=== PATIENT | female | born 1955 | race Hispanic/Latino ===

== ENCOUNTER 2017-04-10 09:15 | Emergency (ER) | payer OTHER ==
[~2017-04-10] VITALS: Ht 165.1 cm; Wt 117.9 kg
[~2017-04-10 09:15] MED LIST: AMLODIPINE BESYL5 MG PO; GLIPIZIDE XL5 MG PO; HYDROCHLOROTH12.5 MG PO; LANTUS100 UNITS/ SUB-Q; MAGNESIUM OXID400 MG PO; MOTRIN IB200 MG PO; NORCO 5-325 TA1 EACH PO; NOVOLOG100 UNITS/ SUB-Q; OXYCODONE HCL5 MG PO; PANTOPRAZOLE SO40 MG PO; PROVERA5 MG PO; REGLAN10 MG PO; SUCRALFATE1 GM PO
[2017-04-10] MEDS ORDERED: LIPITOR10 MG PO (10:05)
[2017-04-10] MEDS ORDERED: ASPIRIN EC81 MG PO (10:05)
[2017-04-10] MEDS ORDERED: GLUCOTROL XL2.5 MG PO (10:06)
[2017-04-10] MEDS ORDERED: PROTONIX40 MG PO (13:28)
[2017-04-10] MEDS ORDERED: ONDANSETRON ODT8 MG PO (13:28)
== END 2017-04-10 13:40 | disposition home or self-care (01) ==
LOC: ED 09:15
DX: R10.13 Epigastric pain (principal); R11.2 Nausea with vomiting, unspecified; I10 Essential (primary) hypertension; E11.9 Type 2 diabetes mellitus without complications; Z90.710 Acquired absence of both cervix and uterus; Z79.84 Long term (current) use of oral hypoglycemic drugs; Z79.899 Other long term (current) drug therapy; Z79.82 Long term (current) use of aspirin; Z88.8 Allergy status to other drugs, medicaments and biological substances
CPT/HCPCS: 76705; 80053; 81001; 82150; 83690; 85025; 96374; 96375; 96376; 99284; J1170; J2405

== ENCOUNTER 2018-10-05 14:39 | Emergency (ER) | payer OTHER ==
[~2018-10-05] VITALS: Ht 162.6 cm; Wt 107.5 kg
--- OUTSIDE RECORDS SUMMARY | ~2018-10-05 | XMS | Encounter Summary ---
Demographics + + + | Address | [address] | | | [place] [address] | + + + | Home Phone | | + + + | Preferred Language | Unknown | + + + | Marital Status | Single | + + + | Catholic Affiliation | NRP | + + + | Race | Unknown | + + + | Ethnic Group | Not or | + + + Author + + + | Author | [facility] | + + + | Organization | [facility] | + + + | Address | Unknown | + + + | Phone | Unavailable | + + + Support + + +---------+ + | Name | Relationship | Address | Phone | + + +---------+ + | Susie Bermeo | ECON | Unknown | | + + +---------+ + | Bermeo,Harini | ECON | Unknown | | + + +---------+ + Care Team Providers + +------+ + | Care Seismograph Helper Name | Role | Phone | + +------+ + | Juan Manuel Yan MD | PCP | | + +------+ + Reason for Referral Diagnostic Testing (Routine) +--------+--------+ + + + + | Status | Reason | Specialty | Diagnoses / | Referred By | Referred To | | | | | Procedures | Contact | Contact | +--------+--------+ + + + + | Closed | | Radiology | Diagnoses | Txc Trans | [facility] | | | | | Other | Coord Liver | [address] | | | | | cirrhosis of | [address] | | | | | liver (HCC) | [address] | [address] | | | | | Liver mass | [address] | Mailcode: | | | | | Procedures | [place], [place] | [address] | | | | | MRI | [address] | [place] | | | | | ABDOMEN WWO | Phone: | Research | | | | | CONTRAST | [phone] | [place] | | | | | | Fax: | [place], [place] | | | | | | [phone] | [address] | | | | | | | Phone: | | | | | | | [phone] | | | | | | | Fax: | | | | | | | [phone] | +--------+--------+ + + + + Reason for Visit + + + | Reason | Comments | + + + | HCC Screening | Third Extension of HCC MELD Exception | + + + Encounter Details +--------+ + + + + | Date | Type | Department | Care Team | Description | +--------+ + + + + | 09/08/ | Documentati | Transplant | Maritza De La Cruz, RN | HCC Screening (Third | | 2019 | on | Coordinators [address] | Extension of HCC | | | | [address] | [address] | MELD Exception) | | | | Road [place], [place] | [place], [place] | | | | | [address] | [address] | | | | | [phone] | | | +--------+ + + + + Social History + +-------+ +--------+------+ | Tobacco Use | Types | Packs/Day | Years | Date | | | | | Used | | + +-------+ +--------+------+ | Never Smoker | | | | | + +-------+ +--------+------+ + +---+---+---+ | Smokeless Tobacco: | | | | | Never Used | | | | + +---+---+---+ + + +---------+ + | Alcohol Use | Drinks/We | oz/Week | Comments | | | ek | | | + + +---------+ + | No | | | | + + +---------+ + + + + | Sex Assigned at | Date Recorded | | | | + + + | Not on file | | + + + as of this encounter Plan of Treatment +--------+ + + + + | Date | Type | Specialty | Care Team | Description | +--------+ + + + + | 12/01/ | Office | Liver Transplant | Jc Acevedo MD | | | 2018 | Visit | | [address] | | | | | | [place], | | | | | | [place] [address] | | | | | | [phone] | | | | | | | | +--------+ + + + + | 12/27/ | Hospital | Adult Acute Care | Day Contreras MD | | | 2020 | Encounter | | [address] | | | | | | [place], | | | | | | [place] [address] | | | | | | [phone] | | | | | | | | +--------+ + + + + as of this encounter Results MRI ABDOMEN WWO CONTRAST (09/25/2018 4:47 PM) + + + | Narrative | Performed At | + + + | EXAM: Abdomen MRI without and with intravenous contrast. | [facility] | | HISTORY: Liver transplant wait list patient, eval known HCC, MRI | RADIOLOGY VOICE | | recommended to eval treated lesion, eval PV & SMV for size and | RECOGNITION 2 | | patency COMPARISON: 09/04/2018 TECHNIQUE: Multiplanar MRI | | | of the abdomen was performed without and with gadolinium based | | | intravenous contrast. FINDINGS: LIVER: Nodular cirrhotic | | | shrunken liver. There is diffuse heterogeneous enhancement in the | | | right hepatic lobe on the arterial phase, however this persists on the | | | delayed phase without suspicious washout, and favored to represent | | | posttreatment changes. Observation 1: LIRADS -TR nonviable: Area | | | of arterial hypoenhancement measuring 2 x 1.7 cm in segment 7 (), | | | likely represents a treated lesion, with no definite viable tumor. | | | Observation 2: A lesion previously visualized centrally at the base | | | of the caudate doesn't show definite suspicious enhancement or washout | | | (). No definite other focal lesions. Patent portal vein and | | | SMV; main portal vein measuring 13 mm. BILIARY: Unremarkable. | | | PANCREAS: Unremarkable. SPLEEN: Mild splenomegaly. ADRENALS: | | | Unremarkable. KIDNEYS: Unremarkable. GI TRACT: Visualized portions | | | are unremarkable. PERITONEUM: Large volume ascites. LYMPH NODES: | | | No lymphadenopathy. VESSELS: Unremarkable. BONES AND SOFT | | | TISSUES: Unremarkable. IMPRESSION: 1. Cirrhosis and portal | | | hypertension. 2. Diffuse heterogeneous enhancement of the right | | | hepatic lobe consistent with posttreatment changes. No definite viable | | | tumor at this point. Continued follow-up with MRI is suggested. | | | LI-RADS v2018 LI-RADS NC: Not categorized due to image degradation | | | or omission. LI-RADS M: Possible malignancy, but not HCC-specific. | | | LI-RADS TIV: Definitely tumor in vein due to HCC or non-HCC | | | malignancy. LI-RADS 5: Definitely HCC (concordant with OPTN 5). | | | LI-RADS 4: Probably HCC. LI-RADS 3: Intermediate probability for | | | malignancy. LI-RADS 2: Probably benign. LI-RADS 1: Definitely | | | benign. LI-RADS TR Non-evaluable: Treated, but response not | | | evaluable due to image omission or degradation. LI-RADS TR Nonviable: | | | Treated, probably or definitely not viable. LI-RADS TR Equivocal: | | | Treated, equivocally viable. LI-RADS TR Viable: Treated, Probably or | | | definitely viable. NOTE: LI-RADS categories should be interpreted | | | in the context of other available data, such as biomarkers and the | | | prior probability of developing or having HCC. The imaging criteria | | | for definite HCC are concordant for the LI-RADS and OPTN | | | systems. LI-RADS criteria and documentation are available online at | | | [email or web address]/Quality-Safety/Resources/LIRADS/[email or web address]-[email or web address]. I have | | | personally reviewed the images and, if necessary, edited the report. I | | | agree with the report as now presented. Final signature: Eve | | | MD Jovanny 09/27/2018 5:56 PM Preliminary: Eve Petty | | | Dictation initiated: Eve Petty MD 09/27/2018 5:23 | | | PM | | + + + + + | Procedure Note | + + | Service Account, Radiant Res In Interface - 09/27/2018 5:57 PM PDT EXAM: Abdomen MRI | | without and with intravenous contrast. HISTORY: Liver transplant wait list patient, | | eval known HCC, MRI recommended to eval treated lesion, eval PV & SMV for size and | | patency COMPARISON: 09/04/2018 TECHNIQUE: Multiplanar MRI of the abdomen was performed | | without and with gadolinium based intravenous contrast. FINDINGS: LIVER: Nodular | | cirrhotic shrunken liver.There is diffuse heterogeneous enhancement in the right hepatic | | lobe on the arterial phase, however this persists on the delayed phase without | | suspicious washout, and favored to represent posttreatment changes. Observation 1: | | LIRADS -TR nonviable: Area of arterial hypoenhancement measuring 2 x 1.7 cm in segment 7 | | (/80), likely represents a treated lesion, with no definite viable tumor. Observation | | 2: A lesion previously visualized centrally at the base of the caudate doesn't show | | definite suspicious enhancement or washout (). No definite other focal | | lesions.Patent portal vein and SMV; main portal vein measuring 13 mm. BILIARY: | | Unremarkable.PANCREAS: Unremarkable. SPLEEN: Mild splenomegaly.ADRENALS: | | Unremarkable.KIDNEYS: Unremarkable.GI TRACT: Visualized portions are | | unremarkable.PERITONEUM: Large volume ascites. LYMPH NODES: No lymphadenopathy.VESSELS: | | Unremarkable. BONES AND SOFT TISSUES: Unremarkable. IMPRESSION: 1. Cirrhosis and portal | | hypertension.2. Diffuse heterogeneous enhancement of the right hepatic lobe consistent | | with posttreatment changes. No definite viable tumor at this point. Continued follow-up | | with MRI is suggested. LI-RADS [id number] NC: Not categorized due to image | | degradation or omission.LI-RADS M: Possible malignancy, but not HCC-specific.LI-RADS | | TIV: Definitely tumor in vein due to HCC or non-HCC malignancy.LI-RADS 5: Definitely HCC | | (concordant with OPTN 5).LI-RADS 4: Probably HCC.LI-RADS 3: Intermediate probability | | for malignancy.LI-RADS 2: Probably benign.LI-RADS 1: Definitely benign. LI-RADS TR | | Non-evaluable: Treated, but response not evaluable due to image omission or | | degradation.LI-RADS TR Nonviable: Treated, probably or definitely not viable.LI-RADS TR | | Equivocal: Treated, equivocally viable.LI-RADS TR Viable: Treated, Probably or | | definitely viable. NOTE: LI-RADS categories should be interpreted in the context of | | other available data, such as biomarkers and the prior probability of developing or | | having HCC. The imaging criteria for definite HCC are concordant for the LI-RADS and | | OPTN systems. LI-RADS criteria and documentation are available online at | | [email or web address]/Quality-Safety/Resources/LIRADS/LIRADS-v2017. I have personally reviewed the | | images and, if necessary, edited the report. I agree with the report as now presented. | | Final signature: Eve Petty MD 09/27/2018 5:56 PM Preliminary: Eve Petty MD | | Dictation initiated: Eve Petty MD 09/27/2018 5:23 PM | | | | | |1. Cirrhosis and portal hypertension. | |2. Diffuse heterogeneous enhancement of the right hepatic lobe consistent with posttreatmen t changes. No definite viable tumor at this point. Continued follow-up with MRI is suggested . | | | | | |LI-RADS v2018 | |LI-RADS NC: Not categorized due to image degradation or omission. | |LI-RADS M: Possible malignancy, but not HCC-specific. | |LI-RADS TIV: Definitely tumor in vein due to HCC or non-HCC malignancy. | |LI-RADS 5: Definitely HCC (concordant with OPTN 5). | |LI-RADS 4: Probably HCC. | |LI-RADS 3: Intermediate probability for malignancy. | |LI-RADS 2: Probably benign. | |LI-RADS 1: Definitely benign. | | | |LI-RADS TR Non-evaluable: Treated, but response not evaluable due to image omission or deg radation. | |LI-RADS TR Nonviable: Treated, probably or definitely not viable. | |LI-RADS TR Equivocal: Treated, equivocally viable. | |LI-RADS TR Viable: Treated, Probably or definitely viable. | | | |NOTE: LI-RADS categories should be interpreted in the context of other available data, such as biomarkers and the prior probability of developing or having HCC. The imaging criteria for definite HCC are concordant for | |the LI-RADS and OPTN systems. LI-RADS criteria and documentation are available online at w [email or web address]/Quality-Safety/Resources/LIRADS/[email or web address]-[email or web address]. | | | |I have personally reviewed the images and, if necessary, edited the report. I agree with e report as now presented. | | | |Final signature: Eve Petty MD 09/27/2018 5:56 PM | |Preliminary: Eve Petty MD | |Dictation initiated: Eve Petty MD 09/27/2018 5:23 PM | + + + +---------+ + + | Performing | Address | City/State/Zipcode | Phone Number | | Organization | | | | + +---------+ + + | [facility] | | | | | VOICE RECOGNITION 2 | | | | + +---------+ + + in this encounter Visit Diagnoses + + | Diagnosis | + + | Other cirrhosis of liver (HCC) - Primary | + + | Liver mass | + + | Unspecified disorder of liver | + +"
--- OUTSIDE RECORDS SUMMARY | ~2018-10-05 | XMS | Encounter Summary ---
Demographics + + + | Address | [address] | | | [place] [address] | + + + | Home Phone | | + + + | Preferred Language | Unknown | + + + | Marital Status | Single | + + + | Jainism Affiliation | NRP | + + + | Race | Unknown | + + + | Ethnic Group | Not or | + + + Author + + + | Author | [facility] | + + + | Organization | [facility] | + + + | Address | [...] Team Providers + +------+ + | Care Powersaw Supervisor Name | Role | Phone | + +------+ + | Juan Manuel Yan MD | PCP | | + +------+ + Encounter Details +--------+ + + + + | Date | Type | Department | Care Team | Description | +--------+ + + + + | 09/08/ | Procedure | Radiology/Imaging | | | | 2019 | Pass | Lab at [facility] [address] | | | | | | [address] | | | | | | Mailcode: [facility] | | | | | | [facility] | | | | | | and [facility], 3rd | | | | | | Floor [place], [place] | | | | | | [address] | | | | | | [phone] | | | +--------+ + + + [...] | Jc Acevedo MD | | | 2019 | Visit | | [address] | | | | | | [place], | | | | | | [place] [address] | | | | | | [phone] | | | | | | | | +--------+ + + + + | 12/27/ | Hospital | Adult Acute Care | Day Contreras MD | | | 2020 | Encounter | | [address] | | | | | | [place], | | | | | | [place] [address] | | | | | | [phone] | | | | | | | | +--------+ + + + + as of this encounter Visit Diagnoses Not on filein this encounter"
--- OUTSIDE RECORDS SUMMARY | ~2018-10-05 | XMS | Encounter Summary ---
Demographics + + + | Address | [address] | | | [place] [address] | + + + | Home Phone | | + + + | Preferred Language | Unknown | + + + | Marital Status | Single | + + + | Gnosticist Affiliation | NRP | + + + | Race | Unknown | + + + | Ethnic Group | Not or | + + + Author + + + | Author | [facility] | + + + | Organization | [facility] | + + + | Address | [...] Team Providers + +------+ + | Care Diffuser Operator Name | Role | Phone | + [...] | Diagnoses | Txc Trans | Rad Ct Scan | | | | | Other | Coord Liver | [facility] [address] | | | | | cirrhosis of | [address] | [address] | | | | | liver (HCC) | [address] | David Mimi | | | | | Liver mass | [address] | Road | | | | | Procedures | [place], [place] | Mailcode: | | | | | CT CHEST | [address] | [address] [facility] | | | | | WO CONTRAST | Phone: | Hospital | | | | | | [phone] | [place], [place] | | | | | | Fax: | [address] | | | | | | [phone] | Phone: | | | | | | | [phone] | | | | | | | Fax: | | | | | | | [phone] | +--------+--------+ + + + + Diagnostic Testing (Routine) +--------+--------+ + + + + | Status | Reason | Specialty | Diagnoses / | Referred By | Referred To | | | | | Procedures | Contact | Contact | +--------+--------+ + + + + | Closed | | Radiology | Diagnoses | Txc Trans | Rad Ct Scan | | | | | Other | Coord Liver | [facility] | | | | | cirrhosis of | [address] | [address] | | | | | liver (HCC) | Tomas Hernandez | David Le | | | | | Liver mass | [address] | Road | | | | | Procedures | [place], [place] | Mailcode: | | | | | CT ABDOMEN | [address] | [address] [facility] | | | | | WWO IV | Phone: | Hospital | | | | | CONTRAST | [phone] | [place], [place] | | | | | | Fax: | [address] | | | | | | [phone] | Phone: | | | | | | | [phone] | | | | | | | Fax: | | | | | | | [phone] | +--------+--------+ + + + + Encounter Details +--------+ + + + + | Date | Type | Department | Care Team | Description | +--------+ + + + + | 08/11/ | [facility] | Transplant | Maritza De La Cruz, JOHN | Other cirrhosis of | | 2019 | | Coordinators [address] | liver (HCC) (Primary | | | | [address] [facility] | [facility] [address] | Dx); Liver mass | | | | Road [place], [place] | [place], [place] | | | | | [address] | [address] | | | | | [phone] | | | +--------+ + + + [...] | | | | | [address] [place], | | | | | | [place] [address] | | | | | | [phone] | | | | | | | | +--------+ + + + + | 12/27/ | Hospital | Adult Acute Care | Day Contreras MD | | | 2020 | Encounter | | [address] | | | | | | [place], | | | | | | [place] [address] | | | | | | [phone] | | | | | | | | +--------+ + + + + as of this encounter Results CT ABDOMEN WWO IV CONTRAST (09/04/2018 1:37 PM) + + + | Narrative | Performed At | + + + | EXAM: Liver protocol CT of the abdomen with and without contrast. | [facility] | | HISTORY: Liver transplant candidate, eval known HCC, eval PV & | RADIOLOGY VOICE | | SMV for size and patency. COMPARISON: 06/26/2018 TECHNIQUE: | RECOGNITION 2 | | Unenhanced, arterial, portal venous and 4-minute delayed abdominal CT | | | with non-ionic iodinated intravenous contrast. Coronal and sagittal | | | reformats were reviewed. FINDINGS: LOWER THORAX: | | | Unremarkable. LIVER: Nodular cirrhotic liver. Focal hepatic | | | observations: There is diffusely heterogeneous hyperenhancement of the | | | right hepatic lobe with likely enhanced washout diffusely and areas | | | of hypoenhancement which are incompletely characterized due to | | | surrounding abnormal enhancement. Overall appearance of the right | | | hepatic lobe is considered LI-RADS TR equivocal and further evaluation | | | with MRI is recommended. No new lesions identified. BILIARY: | | | Unremarkable. PANCREAS: Unremarkable. SPLEEN: Mild splenomegaly | | | as on priors. ADRENALS: Unremarkable. 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 Kidneys otherwise | | | unremarkable. GI TRACT: Visualized portions are unremarkable. | | | PERITONEUM: Large volume ascites increased from prior study. LYMPH | | | NODES: No lymphadenopathy. 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 Portal vein is patent | | | measuring 15 mm. Conventional hepatic arterial anatomy BONES AND | | | SOFT TISSUES: Unremarkable. IMPRESSION: 1. Cirrhosis with | | | portal hypertension; increased ascites compared to prior. 2. | | | LI-RADS TR equivocal appearance of the right hepatic lobe due to | | | perfusional changes post Y 90. Follow-up imaging with MRI is | | | recommended. LI-RADS v2018 LI-RADS NC: Not categorized due to | | | image degradation or omission. LI-RADS M: Possible malignancy, but | | | not HCC-specific. LI-RADS TIV: Definitely tumor in vein due to HCC or | | | non-HCC malignancy. LI-RADS 5: Definitely HCC (concordant with OPTN | | | 5). LI-RADS 4: Probably HCC. LI-RADS 3: Intermediate [...] online at | | | [email or web address]/[email or web address]-[email or web address]/[email or web address]-[email or web address]. I | | | have personally reviewed the images and, if necessary, edited the | | | report. I agree with the report as now presented. Final | | | signature: Concha Tran MD 09/04/2018 3:22 PM Preliminary: | | | Concha Tran MD Dictation initiated: Levi Liz MD 09/04/2018 2:16 PM | | + + + + + | Procedure Note | + + | Service Account, RadiGro Res In Interface - 09/04/2018 3:23 PM PST EXAM: Liver | | protocol CT of the abdomen with and without contrast. HISTORY: Liver transplant | | candidate, eval known HCC, eval PV & SMV for size and patency. COMPARISON: 06/26/2018 | | TECHNIQUE: Unenhanced, arterial, portal venous and 4-minute delayed abdominal CT with | | non-ionic iodinated intravenous contrast. Coronal and sagittal reformats were reviewed. | | FINDINGS: LOWER THORAX: Unremarkable. LIVER: Nodular cirrhotic liver.Focal hepatic | | observations: There is diffusely heterogeneous hyperenhancement of the right hepatic | | lobe with likely enhanced washout diffusely and areas of hypoenhancement which are | | incompletely characterized due to surrounding abnormal enhancement. Overall appearance | | of the right hepatic lobe is considered LI-RADS TR equivocal and further evaluation with | | MRI is recommended.No new lesions identified. BILIARY: Unremarkable.PANCREAS: | | Unremarkable. 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 | | Kidneys otherwise unremarkable. GI TRACT: Visualized portions are | | unremarkable.PERITONEUM: Large volume ascites increased from prior study. 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 Portal vein is patent measuring 15 mm. Conventional hepatic arterial | | anatomy BONES AND SOFT TISSUES: Unremarkable. IMPRESSION: 1. Cirrhosis with portal | | hypertension; increased ascites compared to prior. 2. LI-RADS TR equivocal appearance of | | the right hepatic lobe due to perfusional changes post Y 90. Follow-up imaging with MRI | | is recommended. LI-RADS [id number] NC: Not categorized due to image degradation or | | omission.LI-RADS M: Possible malignancy, but not HCC-specific.LI-RADS TIV: Definitely | | tumor in vein due to HCC or non-HCC malignancy.LI-RADS 5: Definitely HCC (concordant | | with OPTN 5).LI-RADS 4: Probably HCC.LI-RADS 3: Intermediate probability for | | malignancy.LI-RADS 2: Probably benign.LI-RADS 1: Definitely benign. [...] | | www.acr.org/Quality-Safety/Resources/LIRADS/LIRADS-v2017. I have personally reviewed | | the images and, if necessary, edited the report. I agree with the report as now | | presented. Final signature: Concha Tran MD 09/04/2018 3:22 PM Preliminary: Concha | | Juancarlos Tran MD Dictation initiated: Concha Tran MD 09/04/2018 2:16 PM | |2. LI-RADS TR equivocal appearance of the right hepatic lobe due to perfusional changes pos t Y 90. Follow-up imaging with MRI is recommended. | | | | | |LI-RADS v2018 [...] necessary, edited the report. I agree with th e report as now presented. | | | |Final signature: Concha Tran MD 09/04/2018 3:22 PM | |Preliminary: Concha Tran MD | |Dictation initiated: Concha Tran MD 09/04/2018 2:16 PM | + + + +---------+ + + | Performing | Address | City/State/Zipcode | Phone Number | | Organization | | | | + +---------+ + + | [facility] | | | | | VOICE RECOGNITION 2 | | | | + +---------+ + + CT CHEST WO CONTRAST (09/04/2018 1:33 PM) + + + | Narrative | Performed At | + + + | EXAM: CT CHEST WO CONTRAST HISTORY: Liver transplant | [facility] | | candidate with known HCC. Evaluate for pulmonary metastases. | RADIOLOGY VOICE | | COMPARISON: Outside chest CT 08/08/2017 TECHNIQUE: Helical scanning | RECOGNITION 2 | | was obtained of the chest without intravenous contrast and reviewed in | | | soft tissue and lung algorithm. Coronal and sagittal images were also | | | generated. FINDINGS: The heart is normal in size. There is no | | | pericardial effusion. Mild atherosclerotic calcification is noted | | | along the aortic arch. There is no pathologic supraclavicular or | | | axillary adenopathy. Visualized thyroid and base of the neck is | | | unremarkable. There are coarse, calcified mediastinal and left | | | perihilar nodes which appear stable, likely reflecting prior | | | granulomatous disease. Major airways are patent. The lungs are | | | clear. There is no suspicious pulmonary nodule, mass, or | | | consolidation. There is no pneumothorax. There is no pleural fluid. | | | Please see same day dedicated CT abdomen for further details | | | pertaining to hepatic cirrhosis and ascites. There is no aggressive | | | osseous lesions. Diffuse soft tissue anasarca is noted. | | | IMPRESSION: No evidence of metastatic disease to the chest. I | | | have personally reviewed the images and, if necessary, edited the | | | report. I agree with the report as now presented. Final | | | signature: Skye Castillo MD 09/04/2018 3:54 PM Preliminary: [place] | | | Davion Blandon MD Dictation initiated: Chayito Blandon MD | | | 09/04/2018 2:08 PM | | + + + + + | Procedure Note | + + | Service Account, RadiGro Res In Interface - 09/04/2018 3:55 PM PST EXAM: CT CHEST WO | | CONTRAST HISTORY: Liver transplant candidate with known HCC. Evaluate for pulmonary | | metastases. COMPARISON: Outside chest CT 08/08/2017 TECHNIQUE: Helical scanning was | | obtained of the chest without intravenous contrast and reviewed in soft tissue and lung | | algorithm. Coronal and sagittal images were also generated. FINDINGS: The heart is | | normal in size. There is no pericardial effusion. Mild atherosclerotic calcification is | | noted along the aortic arch. There is no pathologic supraclavicular or axillary | | adenopathy. Visualized thyroid and base of the neck is unremarkable. There are coarse, | | calcified mediastinal and left perihilar nodes which appear stable, likely reflecting | | prior granulomatous disease. Major airways are patent. The lungs are clear. There is no | | suspicious pulmonary nodule, mass, or consolidation. There is no pneumothorax. There is | | no pleural fluid. Please see same day dedicated CT abdomen for further details | | pertaining to hepatic cirrhosis and ascites. There is no aggressive osseous lesions. | | Diffuse soft tissue anasarca is noted. IMPRESSION: No evidence of metastatic disease to | | the chest. I have personally reviewed the images and, if necessary, edited the report. I | | agree with the report as now presented. Final signature: Skye Castillo MD 09/04/2018 | | 3:54 PM Preliminary: Chayito Blandon MD Dictation initiated: Chayito Blandon MD | | 09/04/2018 2:08 PM | | | |No evidence of metastatic disease to the chest. | | | |I have personally reviewed the images and, if necessary, edited the report. I agree with th e report as now presented. | | | |Final signature: Skye Castillo MD 09/04/2018 3:54 PM | |Preliminary: Chayito Blandon MD | |Dictation initiated: Chayito Blandon MD 09/04/2018 2:08 PM | + + + +---------+ + + | Performing | Address | City/State/Zipcode | Phone Number | | Organization | | | | + +---------+ + + | [facility] | | | | | VOICE RECOGNITION 2 | | | | + +---------+ + + COMPLETE METABOLIC SET (NA,K,CL,CO2,BUN,CREAT,GLUC,CA,AST,ALT,BILI TOTAL,ALK PHOS,ALB,PROT TOTAL) (09/04/2018 12:13 PM) + +---------+ + + | Component | Value | Ref Range | Performed At | + +---------+ + + | GLUCOSE, PLASMA | 91 | 70 - 99 mg/dL | [facility] | | (LAB) | | | SERVICES, CORE | + +---------+ + + | BUN, PLASMA (LAB) | 15 | 6 - 20 mg/dL | [facility] | | | | | SERVICES, CORE | + +---------+ + + | CREATININE PLASMA | 0.85 | 0.60 - 1.10 mg/dL | [facility] | | (LAB) | | | SERVICES, CORE | + +---------+ + + | EGFR - | >60 | >60 mL/min | [facility] | | DJIBOUTIAN | | | SERVICES, CORE | + +---------+ + + | EGFR NON | >60 | >60 mL/min | [facility] | | -DJIBOUTIAN | | | SERVICES, CORE | + +---------+ + + | SODIUM, PLASMA (LAB) | 138 | 136 - 145 mmol/L | [facility] | | | | | SERVICES, CORE | + +---------+ + + | POTASSIUM, PLASMA | 3.4 | 3.4 - 5.0 mmol/L | [facility] | | (LAB) | | | SERVICES, CORE | + +---------+ + + | CHLORIDE, PLASMA | 104 | 97 - 108 mmol/L | [facility] | | (LAB) | | | SERVICES, CORE | + +---------+ + + | TOTAL CO2, PLASMA | 27 | 21 - 32 mmol/L | [facility] | | (LAB) | | | SERVICES, CORE | + +---------+ + + | CALCIUM, PLASMA | 8.2 (L) | 8.6 - 10.2 mg/dL | [facility] | | (LAB) | | | SERVICES, CORE | + +---------+ + + | CALCIUM(ALB | 9.4 | 8.6 - 10.2 mg/dL | [facility] | | CORRECTED) | | | SERVICES, CORE | + +---------+ + + | BILIRUBIN TOTAL | 1.4 (H) | 0.3 - 1.2 mg/dL | [facility] | | | | | SERVICES, CORE | + +---------+ + + | TOTAL PROTEIN, | 7.9 | 6.4 - 8.2 g/dL | [facility] | | PLASMA (LAB) | | | SERVICES, CORE | + +---------+ + + | ALBUMIN, PLASMA | 2.5 (L) | 3.5 - 4.7 g/dL | [facility] | | (LAB) | | | SERVICES, CORE | + +---------+ + + | ALK PHOS | 152 (H) | 53 - 141 U/L | [facility] | | | | | SERVICES, CORE | + +---------+ + + | AST(SGOT) | 44 (H) | <=41 U/L | [facility] | | | | | SERVICES, CORE | + +---------+ + + | ALT (SGPT) | 27 | <=60 U/L | [facility] | | | | | SERVICES, CORE | + +---------+ + + | ANION GAP | 7 | 4 - 11 mmol/L | [facility] | | | | | SERVICES, CORE | + +---------+ + + | ANION GAP(ALB | 10 | 4 - 11 mmol/L | [facility] | | CORRECTED) | | | SERVICES, CORE | + +---------+ + + | POTASSIUM CMNT | No Hemo | | [facility] | | | | | SERVICES, CORE | + +---------+ + + | THOMAS Szymanski CMNT | No Hemo | | [facility] | | | | | SERVICES, CORE | + +---------+ + + | AST CMNT | No Hemo | | [facility] | | | | | SERVICES, CORE | + +---------+ + + + + | Specimen | + + | Blood - Blood | + + + + + | Narrative | Performed At | + + + | GFR is estimated using the MDRD equation recommended by the | [facility] | | National Kidney Disease Education Program. Estimated GFR | LABORATORY | | Interpretive Information: <60 mL/min/1.73 sq | SERVICES, CORE | | m Chronic Kidney Disease <15 mL/min/1.73 | | | sq m Kidney Failure Estimated GFR greater | | | than 60 mL/min/1.73 sq m is of limited clinical value. The MDRD | | | equation is not valid in the following situations: - Patients under | | | 18 years of age - Severe malnutrition or obesity - Vegetarian diet | | | - Rapidly changing kidney function - Amputees, paraplegics, or other | | | muscle-wasting diseses | | + + + + + + + + | Performing | Address | City/State/Zipcode | Phone Number | | Organization | | | | + + + + + | [facility] | [address] | [place] [address] | | | SERVICES, [place] | [address] | | | + + + + + INR (09/04/2018 12:13 PM) + + + + + | Component | Value | Ref Range | Performed At | + + + + + | INR | 1.31 (H) | 0.90 - 1.20 INR | [facility] | | | | | PRATIBHA, CORE | + + + + + + + | Specimen | + + | Blood - Blood | + + + + + | Narrative | Performed At | + + + | INR Therapeutic ranges for full anticoagulation: INR for | [facility] | | Venous Thromboembolism (2.0 - 3.0) INR INR | LABORATORY | | for most patients with mech. valves (2.5 - 3.5) INR | SERVICES, CORE | + + + + + + + + | Performing | Address | City/State/Zipcode | Phone Number | | Organization | | | | + + + + + | [facility] | [address] | [place] [address] | | | SERVICES, CORE | [address] | | | + + + + + ALPHA-FETOPROTEIN TUMOR MARKER, SERUM (09/04/2018 12:13 PM) + + + + + | Component | Value | Ref Range | Performed At | + + + + + | AFP TUMOR MARKER | 15.9 (H) | <=9.0 ng/mL | [facility] | | SERUM, [facility] | | | SERVICES, CORE | + + + + + + + | Specimen | + + | Blood - Blood | + + + + + + + | Performing | Address | City/State/Zipcode | Phone Number | | Organization | | | | + + + + + | [facility] | [address] | [place] [address] | | | SERVICES, CORE | [address] | | | + + + + + in this encounter Visit Diagnoses + + | Diagnosis | + + | Other cirrhosis of liver (HCC) - Primary | + + | Liver mass | + + | Unspecified disorder of liver | + +"
--- OUTSIDE RECORDS SUMMARY | ~2018-10-05 | XMS | Encounter Summary ---
Demographics + + + | Address | [address] | | | [place] [address] | + + + | Home Phone | | + + + | Preferred Language | Unknown | + + + | Marital Status | Single | + + + | Religion Affiliation | NRP | + + + | Race | Unknown | + + + | Ethnic Group | Not or | + + + Author + + + | Author | [facility] | + + + | Organization | [facility] | + + + | Address [...] Team Providers + +------+ + | Care Packing House Laborer Name | Role | Phone | + [...] | liver (HCC) | [address] | | | | | | Liver mass | | Mailcode: | | | | | Procedures | [place], [place] | [address] | | | | | MRI | [address] | [facility] | | | | | ABDOMEN WWO | Phone: | Research | | | | | CONTRAST | [phone] | Center | | | | | | Fax: | [place], [place] | | | | | | [phone] | [address] | | | | | | | Phone: | | | | | | | [phone] | | | | | | | Fax: | | | | | | | [phone] | +--------+--------+ + + + + Diagnostic [...] liver (HCC) | [address] | [address] | | | | | Liver mass | [address] | Mailcode: | | | | | Procedures | [place], [place] | [address] | | | | | MRI | [address] | [facility] | | | | | ABDOMEN WWO | Phone: | Research | | | | | CONTRAST | [phone] | Center | | | | | | Fax: | [place], [place] | | | | | | [phone] | [address] | | | | | | | Phone: | | | | | | | [phone] | | | | | | | Fax: | | | | | | | [phone] | +--------+--------+ + + + + Reason for Visit Diagnostic Testing (Routine) +--------+--------+ + + + [...] | | | | | Procedures | [place], [place] | [address] | | | | | MRI | [address] | [facility] | | | | | ABDOMEN WWO | Phone: | Research | | | | | CONTRAST | [phone] | Center | | | | | | Fax: | [place], [place] | | | | | | [phone] | [address] | | | | | | | Phone: | | | | | | | [phone] | | | | | | | Fax: | | | | | | | [phone] | +--------+--------+ + + + + Encounter Details +--------+ + + + + | Date | Type | Department | Care Team | Description | +--------+ + + + + | 09/25/ | Hospital | Radiology/Imaging | Jc Acevedo MD | | | 2019 | Encounter | Lab at [facility] [address] | [address] | | | | | [address] | [address] [place], | | | | | Mailcode: CH3G | [place] [address] | | | | | [facility] | [phone] | | | | | and [address], [facility] | | | | | | Floor [place], [place] | | | | | | [address] | | | | | | [phone] | | | +--------+ + + + [...] + + + as of this encounter Last Filed Vital Signs + + + + | Vital Sign | Reading | Time Taken | + + + + | Blood Pressure | - | - | + + + + | Pulse | - | - | + + + + | Temperature | - | - | + + + + | Respiratory Rate | - | - | + + + + | Oxygen Saturation | - | - | + + + + | Inhaled Oxygen | - | - | | Concentration | | | + + + + | Weight | 104.3 kg (230 lb) | 09/25/2018 4:22 PM PDT | + + + + | Height | - | - | + + + + | Body Mass Index | 39.48 | 09/25/2018 4:22 PM PDT | + + + + in this encounter Medications at Time of Discharge + + +-------+---------+--------+ + | Medication | Sig. | Disp. | Refills | Start | End Date | | | | | | Date | | + + +-------+---------+--------+ + | amLODIPine 5 mg | Take 10 mg by mouth | | | | | | oral | once daily. | | | | | | tabletIndications: | Indications: | | | | | | high blood pressure | hypertension | | | | | + + +-------+---------+--------+ + | aspirin EC 81 mg | Take by mouth. | | | | | | oral tablet,delayed | | | | | | | release (DR/EC) | | | | | | + + +-------+---------+--------+ + | atorvastatin 10 mg | Take 10 mg by mouth | | | | | | oral tablet | once daily. | | | | | + + +-------+---------+--------+ + | furosemide (LASIX) | Take 40 mg by mouth | | | | | | 40 mg oral tablet | once daily. | | | | | + + +-------+---------+--------+ + | glipiZIDE ER 2.5 | Take 2.5 mg by mouth | | | | | | mg oral tablet | once daily. | | | | | | extended release | | | | | | | 24hr | | | | | | + + +-------+---------+--------+ + | spironolactone 100 | Take 100 mg by mouth | | | | | | mg oral tablet | once daily. | | | | | + + +-------+---------+--------+ + | traMADol 50 mg | Take 50 mg by mouth | | | | | | oral tablet | as needed for | | | | | | | moderate pain. | | | | | + + +-------+---------+--------+ + as of this encounter Plan of Treatment +--------+ + + + + | Date | Type | Specialty | Care Team | Description | +--------+ + + + + | 12/01/ | Office | Liver Transplant | Jc Acevedo MD | | | 2019 | Visit | | [address] | | | | | | [place], | | | | | | [place] [address] | | | | | | [phone] | | | | | | | | +--------+ + + + + | 12/27/ | Hospital | Adult Acute Care | Day Contreras MD | | | 2020 | Encounter | | [address] | | | | | | [address] [address] | | | | | | [place] [address] | | | | | | [phone] | | | | | | | | +--------+ + + + + as of this encounter Procedures + +--------+ + + + | Procedure Name | Priori | Date/Time | Associated Diagnosis | Comments | | | ty | | | | + +--------+ + + + | MRI ABDOMEN WWO | Routin | 09/25/2018 | Other cirrhosis of | Results for this | | CONTRAST | e | 4:47 PM | liver (HCC) Liver | procedure are in the | | | | PDT | mass | results section. | + +--------+ + + + in this encounter Results MRI ABDOMEN WWO CONTRAST [...] 1.7 cm in segment 7 | | (), likely represents a treated lesion, with no [...] | | with MRI is suggested. LI-RADS [id number] NC: Not categorized due to image | [...] + | Other cirrhosis of liver (HCC) | + + | Liver mass | + + | Unspecified disorder of liver | + + Administered Medications + +---------+ +-------+------+------+ | Medication Order | MAR | Action | Dose | Rate | Site | | | Action | Date | | | | + +---------+ +-------+------+------+ | gadoterate meglumine (DOTAREM) | IV Push | | 21 mL | | | | 0.5 mmol/mL (376.9 mg/mL) | | 9 17:00 | | | | | injection 21 mL 21 mL (rounded | | PDT | | | | | from 20.86 mL = 0.2 mL/kg | | | | | | | 104.3 kg), intravenous, ONCE, 1 | | | | | | | dose, 09/25/18 at 1700 | | | | | | + +---------+ +-------+------+------+ +---+---+ | | | +---+---+ in this encounter"
--- OUTSIDE RECORDS SUMMARY | ~2018-10-05 | XMS | Encounter Summary ---
Demographics + + + | Address | [address] | | | [place] [address] | + + + | Home Phone [...] Author + + + | Author | [facility] | + + + | Organization | [facility] | + + + | Address [...] Team Providers + +------+ + | Care Dairy Farmer Name | Role | Phone | + [...] | | | | | Procedures | [place], [place] | Mailcode: | | | | | CT CHEST | [address] | [address] [facility] | | | | | WO CONTRAST | Phone: | Hospital | | | | | | [phone] | [place], [place] | | | | | | Fax: | [address] | | | | | | [phone] | Phone: | | | | | | | [phone] | | | | | | | Fax: | | | | | | | [phone] | +--------+--------+ + + + + Diagnostic [...] | | | | | Procedures | [place], [place] | Mailcode: | | | | | CT ABDOMEN | [address] | [address] [facility] | | | | | WWO IV | Phone: | Hospital | | | | | CONTRAST | [phone] | [place], [place] | | | | | | Fax: | [address] | | | | | | [phone] | Phone: | | | | | | | [phone] | | | | | | | Fax: | | | | | | | [phone] | +--------+--------+ + + + + Encounter Details +--------+ + + + + | Date | Type | Department | Care Team | Description | +--------+ + + + + | 08/11/ | Head D[facility] | Transplant | Maritza De La Cruz, JOHN | Other cirrhosis of | | 2019 | | Coordinators [address] | liver (HCC) (Primary | | | | [address] [facility] | [facility] [address] | Dx); Liver mass | | | | Road [place], [place] | [place], [place] | | | | | [address] | [address] | | | | | [phone] | | | +--------+ + + + [...] | | | | | [address] [place], | | | | | | [place] [address] | | | | | | [phone] | | | | | | | | +--------+ + + + + | 12/27/ | Hospital | Adult Acute Care | Day Contreras MD | | | 2020 | Encounter | | [address] | | | | | | [place], | | | | | | [place] [address] | | | | | | [phone] | | | | | | | [...] Note | + + | Service Account, RadiWynlink Res In Interface - 09/04/2018 3:23 PM [...] with MRI | | is recommended. LI-RADS [id number] NC: Not categorized due to image degradation [...] Note | + + | Service Account, RadiWynlink Res In Interface - 09/04/2018 3:55 PM [...] >60 mL/min | [facility] | | SUDANESE | | | SERVICES, CORE | + +---------+ + + | EGFR NON | >60 | >60 mL/min | [facility] | | -SUDANESE | | | SERVICES, CORE | + [...] Szymanski CMNT | No Hemo | | [facility] | | | | | SERVICES, [...] | + + + + + | [facility] | [address] | [place] [address] | | | SERVICES, KESHAWN | [address] | | | + + + + + INR (09/04/2018 12:13 PM) + + + + + | Component | Value | Ref Range | Performed At | + + + + + | INR | 1.31 (H) | 0.90 - 1.20 INR | [facility] | | | | | PRATIBHA, [...] [facility] | [address] | [place] [address] | | | SERVICES, CORE | [address] [...] | + + + + + | [facility] | [address] | [place] [address] | | | SERVICES, CORE | [address] | | | + + + + + in this encounter Visit Diagnoses + + | Diagnosis | + + | Other cirrhosis of liver (HCC) - Primary | + + | Liver mass | + + | Unspecified disorder of liver | + +"
--- OUTSIDE RECORDS SUMMARY | ~2018-10-05 | XMS | Encounter Summary ---
Demographics + + + | Address | [address] | | | [place] [address] | + + + | Home Phone | | + + + | Preferred Language | Unknown | + + + | Marital Status | Single | + + + | Buddhist Affiliation | NRP | + + + | Race | Unknown | + + + | Ethnic Group | Not or | + + + Author + + + | Author | [facility] | + + + | Organization | [facility] | + + + | [...] Team Providers + +------+ + | Care Tour Manager Name | Role | Phone | + [...] of | [address] | | | | | liver (HCC) | [address] | [address] | | | | | Liver mass | [address] | Road | | | | | Procedures | [place], [place] | Mailcode: | | | | | CT CHEST | [address] | [address] [facility] | | | | | WO CONTRAST | Phone: | Hospital | | | | | | [phone] | [place], [place] | | | | | | Fax: | [address] | | | | | | [phone] | Phone: | | | | | | | [phone] | | | | | | | Fax: | | | | | | | [phone] | +--------+--------+ + + + + Diagnostic [...] | | | | liver (HCC) | [address] | [address] | | | | | Liver mass | [address] | Road | | | | | Procedures | [place], [place] | Mailcode: | | | | | CT CHEST | [address] | [address] [facility] | | | | | WO CONTRAST | Phone: | Hospital | | | | | | [phone] | [place], [place] | | | | | | Fax: | [address] | | | | | | [phone] | Phone: | | | | | | | [phone] | | | | | | | Fax: | | | | | | | [phone] | +--------+--------+ + + + + Reason [...] of | [address] | [address] | | | | | liver (HCC) | [address] | [facility] | | | | | Liver mass | [address] | Road | | | | | Procedures | [place], [place] | Mailcode: | | | | | CT CHEST | [address] | [address] [facility] | | | | | WO CONTRAST | Phone: | Hospital | | | | | | [phone] | [place], [place] | | | | | | Fax: | [address] | | | | | | [phone] | Phone: | | | | | | | [phone] | | | | | | | Fax: | | | | | | | [phone] | +--------+--------+ + + + + Encounter Details +--------+ + + + + | Date | Type | Department | Care Team | Description | +--------+ + + + + | 09/04/ | Hospital | Diagnostic Imaging | Jc Acevedo MD | | | 2019 | Encounter | Services at [facility] | [address] | | | | | [address] | [address] [place], | | | | | [facility] | [place] [address] | | | | | Mailcode: [address] [facility] | [phone] | | | | | [facility], | | | | | | [place] [address] | | | | | | [phone] | | | +--------+ + + + [...] + + + as of this encounter Medications at Time of Discharge [...] | | | | | | release (DR/SANDY) | | | | | | + [...] | | 2019 | Visit | | [address] | | | | | | [place] [address] [place] [address], | | | | | | [place] [address] | | | | | | [phone] | | | | | | | | +--------+ + + + + | 12/27/ | Hospital | Adult Acute Care | Day Contreras MD | | | 2020 | Encounter | | [address] | | | | | | [place], | | | | | | [place] [address] | | | | | | [phone] | | | | | | | | +--------+ + + + + as of this encounter Procedures + +--------+ + + + | Procedure Name | Priori | Date/Time | Associated Diagnosis | Comments | | | ty | | | | + +--------+ + + + | CT CHEST WO CONTRAST | Routin | 09/04/2018 | Other cirrhosis of | Results for this | | | e | 1:33 PM | liver (HCC) Liver | procedure are in the | | | | PST | mass | results section. | + +--------+ + + + | CREATININE, POC | Routin | 09/04/2018 | Other cirrhosis of | Results for this | | | e | 1:29 PM | liver (HCC) | procedure are in the | | | | PST | | results section. | + +--------+ + + + in this encounter Results CT CHEST WO CONTRAST (09/04/2018 1:33 PM) [...] Service Account, Radiant Res In Interface - 09/04/2018 3:55 PM [...] | | | + +---------+ + + TATI OREILLY (09/04/2018 1:29 PM) + +-------+ + + | Component | Value | Ref Range | Performed At | + +-------+ + + | CREATININE, POC | 0.8 | 0.6 - 1.1 mg/dL | [facility] | | | | | [facility] | | | | | CARE TESTS | + +-------+ + + + + | Specimen | + + | Blood - Blood | + + + + + + + | Performing | Address | City/State/Zipcode | Phone Number | | Organization | | | | + + + + + | [facility] | [address] | [place], [place] | | | [facility] | [address] | [address] | | | TESTS | | | | + + + + + in this encounter Visit Diagnoses + + | Diagnosis | + + | Other cirrhosis of liver (HCC) | + + | Liver mass | + + | Unspecified disorder of liver | + +"
--- OUTSIDE RECORDS SUMMARY | ~2018-10-05 | XMS | Encounter Summary ---
Demographics + + + | Address | [address] | | | [place] [address] | + + + | Home Phone | | + + + | Preferred Language | Unknown | + + + | Marital Status | Single | + + + | Mormonism Affiliation | NRP | + + + | Race | Unknown | + + + | Ethnic Group | Not or | + + + Author + + + | Author | [facility] | + + + | Organization | [facility] | + + + | [...] Team Providers + +------+ + | Care Production Mechanic Tin Cans Name | Role | Phone | + +------+ + | Juan Manuel Yan MD | PCP | | + +------+ + Encounter Details +--------+ + + + + | Date | Type | Department | Care Team | Description | +--------+ + + + + | 08/11/ | Procedure | Diagnostic Imaging | | | | 2019 | Pass | Services at [facility] | | | | | | [address] | | | | | | [facility] | | | | | | Mailcode: [address] [facility] | | | | | | [facility] | | | | | | [place] [address] | | | | | | [phone] | | | +--------+ + + + [...] [address] | | | | | | [address], | | | | | | [place] [address] | | | | | | [phone] | | | | | | | | +--------+ + + + + | 12/27/ | Hospital | Adult Acute Care | Day Contreras MD | | | 2020 | Encounter | | [address] | | | | | | [place], | | | | | | [place] [address] | | | | | | [phone] | | | | | | | | +--------+ + + + + as of this encounter Visit Diagnoses Not on filein this encounter"
--- OUTSIDE RECORDS SUMMARY | ~2018-10-05 | XMS | Clinical Summary ---
Demographics + + + | Address | [address] | | | [place] [address] | + + + | Home Phone | | + + + | Preferred Language | Unknown | + + + | Marital Status | | + + + | Protestant Affiliation | Unknown | + + + | Race | Unknown | + + + | Ethnic Group | Unknown | + + + Author + + + | Author | [facility] | | | and [place]card[place] | + + + | Organization | [facility] | | | and [facility] | + + + | Address | Unknown | + + + | Phone | Unavailable | + + + Support + + +---------+ + | Name | Relationship | Address | Phone | + + +---------+ + | Gabe Cavazos | ECON | Unknown | | + + +---------+ + Care Team Providers + +------+ + | Care Sewage Disposal Worker Name | Role | Phone | + +------+ + | Juan Manuel Yan DO | PP | | + +------+ + Allergies + + + + + + | Active Allergy | Reactions | Severity | Noted | Comments | | | | | Date | | + + + + + + | Lisinopril | Other (See Comments) | Low | 07/03/19 | cough | | | | | 18 | | + + + + + + Medications + + + +---------+------+------+-------+ | Medication | Sig | Dispensed | Refills | Star | End | Statu | | | | | | t | Date | s | | | | | | Date | | | + + + +---------+------+------+-------+ | amLODIPine | Take 10 mg by mouth | | 0 | | | Activ | | (NORVASC) 10 MG | Daily. | | | | | e | | tablet | | | | | | | + + + +---------+------+------+-------+ | aspirin 81 mg EC | Take 81 mg by mouth | | 0 | | | Activ | | tablet | Daily. | | | | | e | + + + +---------+------+------+-------+ | atorvaSTATin | Take 5 mg by mouth | | 0 | | | Activ | | (LIPITOR) 10 mg | nightly. | | | | | e | | tablet | | | | | | | + + + +---------+------+------+-------+ | glipiZIDE | Take 2.5 mg by mouth | | 0 | | | Activ | | (GLUCOTROL XL) 2.5 | daily (with | | | | | e | | mg 24 hr tablet | breakfast). | | | | | | + + + +---------+------+------+-------+ | Multiple Vitamin | Take 1 tablet by | | 0 | | | Activ | | (MULTI-VITAMIN PO) | mouth Daily. | | | | | e | + + + +---------+------+------+-------+ | omeprazole | Take 1 capsule by | 60 | 2 | 02/1 | | Activ | | (PRILOSEC) 20 mg | mouth 2 times daily | capsule | | 2/20 | | e | | capsule | (before meals). | | | 18 | | | + + + +---------+------+------+-------+ Active Problems + + + | Problem | Noted Date | + + + | Cirrhosis of liver | 08/06/2017 | + + + | Abnormal EKG | 08/06/2017 | + + + | Hypertension | 08/05/2017 | + + + | Diabetes mellitus type II - ORAL Control | 08/05/2017 | + + + | GERD (gastroesophageal reflux disease) | 08/05/2017 | + + + | Fecal occult blood test positive | 08/05/2017 | + + + | H/O Hysterectomy | 08/05/2017 | + + + | Obesity, Class III, BMI 40-49.9 (Morbid obesity) | 08/05/2017 | + + + | Elevated hemoglobin A1c | 08/05/2017 | + + + | At risk for sleep apnea - STOP BANG 5 | 08/05/2017 | + + + Family History + +------+ + + | Relation | Name | Status | Comments | + +------+ + + | Father | | | | + +------+ + + | Mother | | | | + +------+ + + Social History + + + +--------+ + | Tobacco Use | Types | Packs/Day | Years | Date | | | | | Used | | + + + +--------+ + | Former Smoker | Cigarettes | 1 | 15 | Quit: 1980 | + + + +--------+ + + +---+---+---+ | Smokeless Tobacco: | | [...] on file | | + + + + + + + | Job Start Date | Occupation | Industry | + + + + | Not on file | Not on file | Not on file | + + + + + + + + | Travel History | Travel Start | Travel End | + + + + + + | No recent travel history available. | + + Last Filed Vital Signs + + + + | Vital Sign | Reading | Time Taken | + + + + | Blood Pressure | 110/85 | 08/06/2017 1010 PST | + + + + | Pulse | 69 | 08/06/2017 1010 PST | + + + + | Temperature | 36.6 C (97.9 F) | 08/06/201726 PST | + + + + | Respiratory Rate | 20 | 08/06/20170 PST | + + + + | Oxygen Saturation | 97% | 08/06/20170 PST | + + + + | Inhaled Oxygen | - | - | | Concentration | | | + + + + | Weight | 115.9 kg (255 lb 8.2 | 08/06/2017748 PST | | | oz) | | + + + + | Height | 165.1 cm (5' 5") | 08/06/2017748 PST | + + + + | Body Mass Index | 42.52 | 08/06/2017748 PST | + + + + Plan of Treatment + + + + + | Health Maintenance | Due Date | Last Done | Comments | + + + + + | Diabetic Eye Exam | | | | | | 5 | | | + + + + + | Diabetic Foot Exam | | | | | | 5 | | | + + + + + | Vaccine: | | | | | Pneumococcal 19-64 | 6 | | | | (PPSV23 only) Medium | | | | | Risk (1 of 1 - | | | | | PPSV23) | | | | + + + + + | Cervical Cancer | | | | | Screening (Pap) | 7 | | | + + + + + | Breast Cancer | | | | | Screening (Ages | 7 | | | | 50-74) | | | | + + + + + | Colorectal Cancer | | | | | Screening | 7 | | | | (Colonoscopy) | | | | + + + + + | Vaccine: Zoster (1 | | | | | of 2) | 7 | | | + + + + + | Microalbumin | | | | | Screening | 7 | | | + + + + + | Hemoglobin A1c | | 06/16/2017, 04/14/2017 | | | Screening | 8 | | | + + + + + | Vaccine: Influenza | | 03/27/2017, 03/07/2016, | | | (Season Ended) | 9 | 04/12/2015, Additional history | | | | | exists | | + + + + + | Vaccine: | | 03/06/2012, 04/06/2010 | | | Dtap/Tdap/Td (3 - | 2 | | | | Td) | | | | + + + + + | Hepatitis C | Completed | 06/16/2017 | | | Screening | | | | + + + + + Results Not on filefrom Last 3 Months Insurance + +--------+ +--------+ +---------+--------+ | Payer | Benefi | Subscriber | Effect | Phone | Address | Type | | | t Plan | ID | quin | | | | | | / | | Dates | | | | | | Group | | | | | | + +--------+ +--------+ +---------+--------+ | [place] | MEDICA | [id number] | 06/09/ | [phone] | | [place] | | | [place] | | 2017-P | 2 | | id | | | PLUS | | resent | | | | + +--------+ +--------+ +---------+--------+ | [place] | MEDICA | [id number] | 06/30/19 | [phone] | | [place] | | | [place] | | 18-Pre | 2 | | id | | | PLUS | | sent | | | | + +--------+ +--------+ +---------+--------+ + +--------+ +--------+ + + | Guarantor Name | Accoun | Relation to | Date | Phone | Billing Address | | | t Type | Patient | of | | | | | | | | | | + +--------+ +--------+ + + | Veronika Bermeo | Person | Self [birth year] | | | al/Fam | | [phone] | [phone] | [place] [address] | | | arias | | | 2 (Home) | | + +--------+ +--------+ + + Advance Directives Patient has advance care planning documents on file. For more information, please contact:Cord[facility] [place] [address]
--- OUTSIDE RECORDS SUMMARY | ~2018-10-05 | XMS | Encounter Summary ---
Demographics + + + | Address | [address] | | | [place] [address] | + + + | Home Phone | | + + + | Preferred Language | Unknown | + + + | Marital Status | Single | + + + | Episcopalian Affiliation | NRP | + + + | Race | Unknown | + + + | Ethnic Group | Not or | + + + Author + + + | Author | [facility] | + + + | Organization | [facility] | + + + | [...] Team Providers + +------+ + | Care Manager Wealth Management Name | Role | Phone | + +------+ + | Juan Manuel Yan MD | PCP | | + +------+ + Reason for Visit + + + | Reason | Comments | + + + | Scheduling | | + + + Encounter Details +--------+ + + + + | Date | Type | Department | Care Team | Description | +--------+ + + + + | 08/13/ | Telephone | Transplant | Jc Acevedo MD | Scheduling | | 2019 | | Coordinators [address] | | | | | [address] [facility] | [address] [place], | | | | | Road [place], [place] | [place] [address] | | | | | [address] | [phone] | | | | | [phone] | | | +--------+ + + + [...] | | | | | | [place], | | | | | | [place] [address] | | | | | | [phone] | | | | | | | | +--------+ + + + + | 12/27/ | Hospital | Adult Acute Care | Day Contreras MD | | | 2020 | Encounter | | [address] | | | | | | [place], | | | | | | [place] [address] | | | | | | [phone] | | | | | | | | +--------+ + + + + as of this encounter Visit Diagnoses Not on filein this encounter"
--- OUTSIDE RECORDS SUMMARY | ~2018-10-05 | XMS | Encounter Summary ---
Demographics + + + | Address | [address] | | | [place] [address] | + + + | Home Phone | | + + + | Preferred Language | Unknown | + + + | Marital Status | Single | + + + | Yazdanism Affiliation | NRP | + + + [...] Team Providers + +------+ + | Care Horologist Name | Role | Phone | + +------+ + | Juan Manuel Yan MD | PCP | | + +------+ + Encounter Details +--------+ + + + + | Date | Type | Department | Care Team | Description | +--------+ + + + + | 09/22/ | MyChart | MyChart [address] | | Appointment Reminder | | 2019 | Encounter | [address] | | | | | | Road [place], [place] | | | | | | [address] | | | +--------+ + + + [...] [address] | | | | | | [address], | | | | | | [place] [address] | | | | | | [phone] | | | | | | | | +--------+ + + + + | 12/27/ | Hospital | Adult Acute Care | Day Contreras MD | | | 2020 | Encounter | | [address] | | | | | | [place], | | | | | | [place] [address] | | | | | | [phone] | | | | | | | | +--------+ + + + + as of this encounter Visit Diagnoses Not on filein this encounter"
--- OUTSIDE RECORDS SUMMARY | ~2018-10-05 | XMS | Encounter Summary ---
Demographics + + + | Address | [address] | | | [place] [address] | + + + | Home Phone | | + + + | Preferred Language | Unknown | + + + | Marital Status | Single | + + + | Sikh Affiliation | NRP | + + + | Race | Unknown | + + + | Ethnic Group | Not or | + + + Author + + + | Author | [facility] | + + + | Organization | [facility] | + + + | Address [...] Team Providers + +------+ + | Care Naval Gunfire Spotter Name | Role | Phone | + [...] | | | | | Procedures | [place], [place] | Mailcode: | | | | | CT ABDOMEN | [address] | [address] [facility] | | | | | [address] | Phone: | Hospital | | | | | CONTRAST | [phone] | [place], [place] | | | | | | Fax: | [address] | | | | | | [phone] | Phone: | | | | | | | [phone] | | | | | | | Fax: | | | | | | | [phone] | +--------+--------+ + + + + Diagnostic [...] cirrhosis of | [address] | | | | | liver (HCC) | [address] | [address] | | | | | Liver mass | [address] | Road | | | | | Procedures | [place], [place] | Mailcode: | | | | | CT ABDOMEN | [address] | [address] [facility] | | | | | [address] IV | Phone: | Hospital | | | | | CONTRAST | [phone] | [place], [place] | | | | | | Fax: | [address] | | | | | | [phone] | Phone: | | | | | | | [phone] | | | | | | | Fax: | | | | | | | [phone] | +--------+--------+ + + + + Reason [...] | liver (HCC) | [address] | [facility] | | | | | Liver mass | [address] | Road | | | | | Procedures | [place], [place] | Mailcode: | | | | | CT ABDOMEN | [address] | [address] [facility] | | | | | [address] | Phone: | Hospital | | | | | CONTRAST | [phone] | [place], [place] | | | | | | Fax: | [address] | | | | | | [phone] | Phone: | | | | | | | [phone] | | | | | | | Fax: | | | | | | | [phone] | +--------+--------+ + + + + Encounter Details +--------+ + + + + | Date | Type | Department | Care Team | Description | +--------+ + + + + | 09/04/ | Hospital | Diagnostic Imaging | Jc Acevedo MD | | | 2019 | Encounter | Services at [facility] | [address] | | | | | [address] [facility] | [address] [place], | | | | | [facility] | [place] [address] | | | | | Mailcode: [address] [facility] | [phone] | | | | | [facility], | | | | | | [place] [address] | | | | | | [phone] | | | +--------+ + + + [...] [address] | | | | | | [address] [place] [address], | | | | | | [place] [address] | | | | | | [phone] | | | | | | | | +--------+ + + + + | 12/27/ | Hospital | Adult Acute Care | Day Contreras MD | | | 2020 | Encounter | | [address] | | | | | | [place], | | | | | | [place] [address] | | | | | | [phone] | | | | | | | | +--------+ + + + + as of this encounter Procedures + +--------+ + + + | Procedure Name | Priori | Date/Time | Associated Diagnosis | Comments | | | ty | | | | + +--------+ + + + | CT ABDOMEN [address] IV | Routin | 09/04/2018 | Other cirrhosis of | Results for this | | CONTRAST | e | 1:37 PM | liver (HCC) Liver | procedure are in the | | | | PST | mass | results section. | + +--------+ + + + in this encounter Results CT ABDOMEN WWO IV [...] | | Concha Tran MD Dictation initiated: Concha Tran | | | 09/04/2018 2:16 PM | | + + + + + | Procedure Note | + + | Service Account, Radiant Res In Interface - 09/04/2018 3:23 PM [...] with MRI | | is recommended. LI-RADS [id number] NC: Not categorized due to image degradation [...] | + + Administered Medications + +---------+ +--------+------+------+ | Medication Order | MAR | Action | Dose | Rate | Site | | | Action | Date | | | | + +---------+ +--------+------+------+ | iohexol (OMNIPAQUE) 350 mg | IV Push | 09/04/2018 | 125 mL | | | | iodine/mL injection 125 mL 125 | | 14:15 | | | | | mL, intravenous, ONCE, 1 dose, | | PST | | | | | 09/04/18 at 1415 | | | | | | + +---------+ +--------+------+------+ +---+---+ | | | +---+---+ in this encounter"
--- OUTSIDE RECORDS SUMMARY | ~2018-10-05 | XMS | Encounter Summary ---
Demographics + + + | Address | [address] | | | [place] [address] | + + + | Home Phone | | + + + | Preferred Language | Unknown | + + + | Marital Status | Single | + + + | Worship Affiliation | NRP | + + + | Race | Unknown | + + + | Ethnic Group | Not or | + + + Author + + + | Author | [facility] | + + + | Organization | [facility] | + + + | [...] Team Providers + +------+ + | Care Gas Manager Name | Role | Phone | + +------+ + | Juan Manuel Yan MD | PCP | | + +------+ + Encounter Details +--------+ + + + + | Date | Type | Department | Care Team | Description | +--------+ + + + + | 09/02/ | MyChart | Diagnostic Imaging | | appointment reminder | | 2019 | Encounter | Services [address] | | | | | | [facility] | | | | | | Road [place], [place] | | | | | | [address] | | | +--------+ + + + [...] [place] | | | | | | [address], | | | | | | [place] [address] | | | | | | [phone] | | | | | | | | +--------+ + + + + | 12/27/ | Hospital | Adult Acute Care | Day Contreras MD | | | 2020 | Encounter | | [address] | | | | | | [place], | | | | | | [place] [address] | | | | | | [phone] | | | | | | | | +--------+ + + + + as of this encounter Visit Diagnoses Not on filein this encounter"
--- OUTSIDE RECORDS SUMMARY | ~2018-10-05 | XMS | Encounter Summary ---
Demographics + + + | Address | [address] | | | [place] [address] | + + + | Home Phone | | + + + | Preferred Language | Unknown | + + + | Marital Status | Single | + + + | Anabaptist Affiliation | NRP | + + + | Race | Unknown | + + + | Ethnic Group | Not or | + + + Author + + + | Author | [facility] | + + + | Organization | [facility] | + + + | Address [...] Team Providers + +------+ + | Care Cd Storage And Materials Make Up Helper Name | Role | Phone | + +------+ + | Juan Manuel Yan MD | PCP | | + +------+ + Encounter Details +--------+ + + + + | Date | Type | Department | Care Team | Description | +--------+ + + + + | 08/11/ | Procedure | Diagnostic Imaging | | | | 2019 | Pass | Services at [facility] | | | | | | [address] | | | | | | [facility] | | | | | | Mailcode: [address] [facility] | | | | | | [facility] | | | | | | [place] [address] | | | | | | [phone] | | | +--------+ + + + [...] [place] | | | | | | [address], | | | | | | [place] [address] | | | | | | [phone] | | | | | | | | +--------+ + + + + | 12/27/ | Hospital | Adult Acute Care | Day Contreras MD | | | 2020 | Encounter | | [address] | | | | | | [place]ames[place], | | | | | | [place] [address] | | | | | | [phone] | | | | | | | | +--------+ + + + + as of this encounter Visit Diagnoses Not on filein this encounter"
--- OUTSIDE RECORDS SUMMARY | ~2018-10-05 | XMS | Encounter Summary ---
Demographics + + + | Address | [address] | | | [place] [address] | + + + | Home Phone [...] + + + | Author | [facility] | + + + | Organization | [facility] | + + + | Address [...] Team Providers + +------+ + | Care Behavioral Specialist Name | Role | Phone | + +------+ + | Juan Manuel Yan MD | PCP | | + +------+ + Encounter Details +--------+ + + + + | Date | Type | Department | Care Team | Description | +--------+ + + + + | 09/08/ | Procedure | Radiology/Imaging | | | | 2019 | Pass | Lab at [facility] [address] | | | | | | [address] | | | | | | Mailcode: [facility] | | | | | | [facility] | | | | | | and [facility], 3rd | | | | | | Floor [place], [place] | | | | | | [address] | | | | | | [phone] | | | +--------+ + + + [...] | | | | | [address] [place], | | | | | | [place] [address] | | | | | | [phone] | | | | | | | | +--------+ + + + + | 12/27/ | Hospital | Adult Acute Care | Day Contreras MD | | | 2020 | Encounter | | [address] | | | | | | [place], | | | | | | [place] [address] | | | | | | [phone] | | | | | | | | +--------+ + + + + as of this encounter Visit Diagnoses Not on filein this encounter"
--- OUTSIDE RECORDS SUMMARY | ~2018-10-05 | XMS | Encounter Summary ---
Demographics + + + | Address | [address] | | | [place] [address] | + + + | Home Phone | | + + + | Preferred Language | Unknown | + + + | Marital Status | Single | + + + | Yarsanism Affiliation | NRP | + + + | Race | Unknown | + + + | Ethnic Group | Not or | + + + Author + + + | Author | [facility] | + + + | Organization | [facility] | + + + | Address [...] Providers + +------+ + | Care Manager Of Human Resources Name | Role | Phone | + [...] | | | | | [address] [facility] | [address] [place], | | | | | Road [place], [place] | [place] [address] | | | | | [address] | [phone] | | | | | [phone] | | | +--------+ + + + [...] | | | | | | [place] [address] | | | | | | [phone] | | | | | | | | +--------+ + + + + | 12/27/ | Hospital | Adult Acute Care | Day Contreras MD | | | 2020 | Encounter | | [address] | | | | | | [place], | | | | | | [place] [address] | | | | | | [phone] | | | | | | | | +--------+ + + + + as of this encounter Visit Diagnoses Not on filein this encounter"
--- OUTSIDE RECORDS SUMMARY | ~2018-10-05 | XMS | Encounter Summary ---
Demographics + + + | Address | [address] | | | [place] [address] | + + + | Home Phone | | + + + | Preferred Language | Unknown | + + + | Marital Status | Single | + + + | Judaism Affiliation | NRP | + + + | Race | Unknown | + + + | Ethnic Group | Not or | + + + Author + + + | Author | [facility] | + + + | Organization | [facility] | + + + | Address | [...] Team Providers + +------+ + | Care Painting Manager Name | Role | Phone | [...] | | | | | Procedures | [place], [place] | Mailcode: | | | | | CT ABDOMEN | [address] | [address] [facility] | | | | | WWO IV | Phone: | Hospital | | | | | CONTRAST | [phone] | [place], [place] | | | | | | Fax: | [address] | | | | | | [phone] | Phone: | | | | | | | [phone] | | | | | | | Fax: | | | | | | | [phone] | +--------+--------+ + + + + Diagnostic [...] | | | | | Procedures | [place], [place] | Mailcode: | | | | | CT ABDOMEN | [address] | [address] [facility] | | | | | WWO IV | Phone: | Hospital | | | | | CONTRAST | [phone] | [place], [place] | | | | | | Fax: | [address] | | | | | | [phone] | Phone: | | | | | | | [phone] | | | | | | | Fax: | | | | | | | [phone] | +--------+--------+ + + + + Reason [...] | liver (HCC) | [address] | [facility] | | | | | Liver mass | [address] | Road | | | | | Procedures | [place], [place] | Mailcode: | | | | | CT ABDOMEN | [address] | [address] [facility] | | | | | WWO IV | Phone: | Hospital | | | | | CONTRAST | [phone] | [place], [place] | | | | | | Fax: | [address] | | | | | | [phone] | Phone: | | | | | | | [phone] | | | | | | | Fax: | | | | | | | [phone] | +--------+--------+ + + + + Encounter Details +--------+ + + + + | Date | Type | Department | Care Team | Description | +--------+ + + + + | 09/04/ | Hospital | Diagnostic Imaging | Jc Acevedo MD | | | 2019 | Encounter | Services at [facility] | [address] | | | | | [address] [facility] | [address] [place], | | | | | [facility] | [place] [address] | | | | | Mailcode: [address] [facility] | [phone] | | | | | [facility], | | | | | | [place] [address] | | | | | | [phone] | | | +--------+ + + + [...] | | | | | | [address] [place] [address], | | | | | | [place] [address] | | | | | | [phone] | | | | | | | | +--------+ + + + + | 12/27/ | Hospital | Adult Acute Care | Day Contreras MD | | | 2020 | Encounter | | [address] | | | | | | [place], | | | | | | [place] [address] | | | | | | [phone] | | | | | | | [...] with MRI | | is recommended. LI-RADS [id number] NC: Not categorized due to image degradation [...]
--- OUTSIDE RECORDS SUMMARY | ~2018-10-05 | XMS | Encounter Summary ---
Demographics + + + | Address | [address] | | | [place] [address] | + + + | Home Phone | | + + + | Preferred Language | Unknown | + + + | Marital Status | Single | + + + | Hoahaoism Affiliation | NRP | + + + [...] Team Providers + +------+ + | Care Biological Engineer Name | Role | Phone | + [...] | | | | | Procedures | [place], [place] | Mailcode: | | | | | CT CHEST | [address] | [address] [facility] | | | | | WO CONTRAST | Phone: | Hospital | | | | | | [phone] | [place], [place] | | | | | | Fax: | [address] | | | | | | [phone] | Phone: | | | | | | | [phone] | | | | | | | Fax: | | | | | | | [phone] | +--------+--------+ + + + + Diagnostic [...] | | | | | Procedures | [place], [place] | Mailcode: | | | | | CT CHEST | [address] | [address] [facility] | | | | | WO CONTRAST | Phone: | Hospital | | | | | | [phone] | [place], [place] | | | | | | Fax: | [address] | | | | | | [phone] | Phone: | | | | | | | [phone] | | | | | | | Fax: | | | | | | | [phone] | +--------+--------+ + + + + Reason [...] | liver (HCC) | [address] | [facility] | | | | | Liver mass | [address] | Road | | | | | Procedures | [place], [place] | Mailcode: | | | | | CT CHEST | [address] | [address] [facility] | | | | | WO CONTRAST | Phone: | Hospital | | | | | | [phone] | [place], [place] | | | | | | Fax: | [address] | | | | | | [phone] | Phone: | | | | | | | [phone] | | | | | | | Fax: | | | | | | | [phone] | +--------+--------+ + + + + Encounter Details +--------+ + + + + | Date | Type | Department | Care Team | Description | +--------+ + + + + | 09/04/ | Hospital | Diagnostic Imaging | Jc Acevedo MD | | | 2019 | Encounter | Services at [facility] | [address] | | | | | [address] | [address] [place], | | | | | [facility] | [place] [address] | | | | | Mailcode: [address] [facility] | [phone] | | | | | [facility], | | | | | | [place] [address] | | | | | | [phone] | | | +--------+ + + + [...] | | 2019 | Visit | | [address] | | | | | | [address] [place] [address], | | | | | | [place] [address] | | | | | | [phone] | | | | | | | | +--------+ + + + + | 12/27/ | Hospital | Adult Acute Care | Day Contreras MD | | | 2020 | Encounter | | [address] | | | | | | [place], | | | | | | [place] [address] | | | | | | [phone] | | | | | | | [...] 3:54 PM Preliminary: Chayito | | | aDvion Blandon MD Dictation initiated: Chayito Blandon MD [...] 0.8 | 0.6 - 1.1 mg/dL | [facility] | | | | | KAMERON [...] [place] | [address] | [place], [place] | | | [facility] | [address] | [address] | | | TESTS | | | | + + + + + in this encounter Visit Diagnoses + + | Diagnosis | + + | Other cirrhosis of liver (HCC) | + + | Liver mass | + + | Unspecified disorder of liver | + +"
--- OUTSIDE RECORDS SUMMARY | ~2018-10-05 | XMS | Encounter Summary ---
Demographics + + + | Address | [address] | | | [place] [address] | + + + | Home Phone | | + + + | Preferred Language | Unknown | + + + | Marital Status | Single | + + + | Cheondoism Affiliation | NRP | + + + [...] Team Providers + +------+ + | Care Associate Music Professor Name | Role | Phone | + [...] | | | | | Procedures | [place], [place] | [address] | | | | | MRI | [address] | [place] | | | | | ABDOMEN WWO | Phone: | Research | | | | | CONTRAST | [phone] | Center | | | | | | Fax: | [place], [place] | | | | | | [phone] | [address] | | | | | | | Phone: | | | | | | | [phone] | | | | | | | Fax: | | | | | | | [phone] | +--------+--------+ + + + + Diagnostic [...] | | | | | Procedures | [place], [place] | [address] | | | | | MRI | [address] | [place] | | | | | ABDOMEN WWO | Phone: | Research | | | | | CONTRAST | [phone] | Center | | | | | | Fax: | [place], [place] | | | | | | [phone] | [address] | | | | | | | Phone: | | | | | | | [phone] | | | | | | | Fax: | | | | | | | [phone] | +--------+--------+ + + + + Reason [...] | | | | | Procedures | [place], [place] | [address] | | | | | MRI | [address] | [place] | | | | | ABDOMEN WWO | Phone: | Research | | | | | CONTRAST | [phone] | Center | | | | | | Fax: | [place], [place] | | | | | | [phone] | [address] | | | | | | | Phone: | | | | | | | [phone] | | | | | | | Fax: | | | | | | | [phone] | +--------+--------+ + + + + Encounter Details +--------+ + + + + | Date | Type | Department | Care Team | Description | +--------+ + + + + | 09/25/ | Hospital | Radiology/Imaging | Jc Acevedo MD | | | 2019 | Encounter | Lab at [facility] [address] | [address] | | | | | [address] | [address] [place], | | | | | Mailcode: CH3G | [place] [address] | | | | | [facility] | [phone] | | | | | and [address], [facility] | | | | | | Floor [place], [place] | | | | | | [address] | | | | | | [phone] | | | +--------+ + + + [...] | | | | | [address] [place], | | | | | | [place] [address] | | | | | | [phone] | | | | | | | | +--------+ + + + + | 12/27/ | Hospital | Adult Acute Care | Day Contreras MD | | | 2020 | Encounter | | [address] | | | | | | [place] | | | | | | [place] [address] | | | | | | [phone] | | | | | | | [...] | | with MRI is suggested. LI-RADS [id number] NC: Not categorized due to image | [...] now presented. | | | |Final signature: vEe Petty MD 09/27/2018 5:56 PM | |Preliminary: [...]
--- OUTSIDE RECORDS SUMMARY | ~2018-10-05 | XMS | Encounter Summary ---
Demographics + + + | Address | [address] | | | [place] [address] | + + + | Home Phone | | + + + | Preferred Language | Unknown | + + + | Marital Status | Single | + + + | Adventism Affiliation | NRP | + + + | Race | Unknown | + + + | Ethnic Group | Not or | + + + Author + + + | Author | [facility] | + + + | Organization | [facility] | + + + | Address | [...] Team Providers + +------+ + | Care Supervisor Toy Assembly Name | Role | Phone | + +------+ + | Juan Manuel Yan MD | PCP | | + +------+ + Encounter Details +--------+------+ + + + | Date | Type | Department | Care Team | Description | +--------+------+ + + + | 09/04/ | Lab | Laboratory, | | Other cirrhosis of | | 2019 | | Specimen Collection | | liver (HCC); Liver | | | | at [facility] 3rd Floor | | mass | | | | [address] | | | | | | [address] | | | | | | [place], [place] | | | | | | [address] | | | | | | [phone] | | | +--------+------+ + + + Social History + +-------+ [...] | | | | | [address] [place], | | | | | | [place] [address] | | | | | | [phone] | | | | | | | | +--------+ + + + + | 12/27/ | Hospital | Adult Acute Care | Day Contreras MD | | | 2020 | Encounter | | [address] | | | | | | [place], | | | | | | [place] [address] | | | | | | [phone] | | | | | | | | +--------+ + + + + as of this encounter Procedures + +--------+ + + + | Procedure Name | Priori | Date/Time | Associated Diagnosis | Comments | | | ty | | | | + +--------+ + + + | CBC (HEMOGRAM) ONLY | Routin | 09/04/2018 | Other cirrhosis of | Results for this | | | e | 12:13 PM | liver (HCC) Liver | procedure are in the | | | | PST | mass | results section. | + +--------+ + + + | INR | Routin | 09/04/2018 | Other cirrhosis of | Results for this | | | e | 12:13 PM | liver (HCC) Liver | procedure are in the | | | | PST | mass | results section. | + +--------+ + + + | COMPLETE METABOLIC | Routin | 09/04/2018 | Other cirrhosis of | Results for this | | SET | e | 12:13 PM | liver (HCC) Liver | procedure are in the | | (NA,K,CL,CO2,BUN,CRE | | PST | mass | results section. | | AT,GLUC,CA,AST,ALT,B | | | | | | NEEL TOTAL,ALK | | | | | | PHOS,ALB,PROT TOTAL) | | | | | + +--------+ + + + | CBC ONLY | Routin | 09/04/2018 | Other cirrhosis of | Results for this | | | e | 12:13 PM | liver (HCC) Liver | procedure are in the | | | | PST | mass | results section. | + +--------+ + + + | ALPHA-FETOPROTEIN | Routin | 09/04/2018 | Other cirrhosis of | Results for this | | TUMOR MARKER, SERUM | e | 12:13 PM | liver (HCC) Liver | procedure are in the | | | | PST | mass | results section. | + +--------+ + + + in this encounter Results CBC (HEMOGRAM) ONLY (09/04/2018 12:13 PM) + + + + + | Component | Value | Ref Range | Performed At | + + + + + | WHITE CELL COUNT | 6.64 | 3.50 - 10.80 K/cu mm | [facility] | | | | | SERVICES, CORE | + + + + + | RED CELL COUNT | 4.70 | 4.00 - 5.20 M/cu mm | [facility] | | | | | SERVICES, CORE | + + + + + | HEMOGLOBIN | 12.8 | 12.0 - 16.0 g/dL | [facility] | | | | | SERVICES, CORE | + + + + + | HEMATOCRIT | 38.8 | 36.0 - 46.0 % | [facility] | | | | | SERVICES, CORE | + + + + + | MCV | 82.6 | 80.0 - 100.0 fL | [facility] | | | | | SERVICES, CORE | + + + + + | MCHC | 33.0 | 32.0 - 36.0 g/dL | [facility] | | | | | SERVICES, CORE | + + + + + | RDW SD | 51.4 (H) | 35.1 - 46.3 fL | [facility] | | | | | SERVICES, CORE | + + + + + | PLATELET COUNT | 118 (L) | 150 - 400 K/cu mm | [facility] | | | | | SERVICES, CORE | + + + + + | MPV | 12.5 (H) | 9.7 - 12.3 fL | [facility] | | | | | SERVICES, CORE | + + + + + | NRBC% | 0.0 | 0.0 - 0.3 % | [facility] | | | | | SERVICES, CORE | + + + + + | NRBC# | 0.00 | 0.00 - 0.02 K/cu mm | [facility] | | | | | SERVICES, CORE | + + + + + + + | Specimen | + + | Blood - Blood | + + + + + + + | Performing | Address | City/State/Zipcode | Phone Number | | Organization | | | | + + + + + | [facility] | [address] | [place] [address] | | | SERVICES, CORE | [address] | | | + + + + + COMPLETE METABOLIC SET (NA,K,CL,CO2,BUN,CREAT,GLUC,CA,AST,ALT,BILI TOTAL,ALK [...] >60 mL/min | [facility] | | CUBAN | | | SERVICES, CORE | + +---------+ + + | EGFR NON | >60 | >60 mL/min | [facility] | | -CUBAN | | | SERVICES, CORE | + [...] LABORATORY | | (LAB) | | | PRATIBHA, CORE | + +---------+ + + | [...] CORE | + +---------+ + + | BILI T CMNT | No Hemo | | [facility] [...] | + + + + + | [facility] | [address] | [place] [address] | | | K[address]WN MCKINNON | [address] | | | + + + + + INR (09/04/2018 12:13 PM) + + + + + | Component | Value | Ref Range | Performed At | + + + + + | INR | 1.31 (H) | 0.90 - 1.20 INR | [facility] | | | | | SERVICES, [...] mech. valves (2.5 - 3.5) INR | [facility] [place] | + + + + + + + + | Performing | Address | City/State/Zipcode | Phone Number | | Organization | | | | + + + + + | [facility] | [address] | [place] [address] | | | KESHAWN MCKINNON | [address] | | | + + + + + ALPHA-FETOPROTEIN TUMOR MARKER, SERUM (09/04/2018 12:13 PM) + + + + + | Component | Value | Ref Range | Performed At | + + + + + | AFP TUMOR MARKER | 15.9 (H) | <=9.0 ng/mL | [facility] | | SERUM, [facility] | | | SERVICES, CORE | + + + + + + + | Specimen | + + | Blood - Blood | + + + + + + + | Performing | Address | City/State/Zipcode | Phone Number | | Organization | | | | + + + + + | [facility] | [address] | [place] [address] | | | SERVICES, [place] | [address] | | | + + + + + in this encounter Visit Diagnoses + + | Diagnosis | + + | Other cirrhosis of liver (HCC) | + + | Liver mass | + + | Unspecified disorder of liver | + +"
--- OUTSIDE RECORDS SUMMARY | ~2018-10-05 | XMS | Clinical Summary ---
Demographics + + + | Address | [address] | | | [place] [address] | + + + | Home Phone | | + + + | Preferred Language | Unknown | + + + | Marital Status | Single | + + + | Methodist Affiliation | NRP | + + + | Race | Unknown | + + + | Ethnic Group | Not or | + + + Author + + + | Author | [facility] | + + + | Organization | [facility] | + + + | Address | Unknown | + + + | Phone | Unavailable | + + + Support + + +---------+ + | Name | Relationship | Address | Phone | + + +---------+ + | Susie Mayes | ECON | Unknown | | + + +---------+ + | Harini Mayes | ECON | Unknown | | + + +---------+ + Care Team Providers + +------+ + | Care Baseball Sewer Hand Name | Role | Phone | + +------+ + | Juan Manuel Yan MD | PP | | + +------+ + Source Comments BRADY is fully live on both EpicCare Ambulatory and EpicCare InPatient.[facility] Allergies + + + + + + | Active Allergy | Reactions | Severity | Noted | Comments | | | | | Date | | + + + + + + | Lisinopril | Cough | Low | 07/03/19 | cough | | | | | 18 | | + + + + + + Current Medications + + +-------+---------+------+------+-------+ | Prescription | Sig. | Disp. | Refills | Star | End | Statu | | | | | | t | Date | s | | | | | | Date | | | + + +-------+---------+------+------+-------+ | amLODIPine 5 mg | Take 10 mg by mouth | | | | | Activ | | oral | once daily. | | | | | e | | tabletIndications: | Indications: | | | | | | | high blood pressure | hypertension | | | | | | + + +-------+---------+------+------+-------+ | aspirin EC 81 mg | Take by mouth. | | | | | Activ | | oral tablet,delayed | | | | | | e | | release (DR/EC) | | | | | | | + + +-------+---------+------+------+-------+ | atorvastatin 10 mg | Take 10 mg by mouth | | | | | Activ | | oral tablet | once daily. | | | | | e | + + +-------+---------+------+------+-------+ | glipiZIDE ER 2.5 | Take 2.5 mg by mouth | | | | | Activ | | mg oral tablet | once daily. | | | | | e | | extended release | | | | | | | | 24hr | | | | | | | + + +-------+---------+------+------+-------+ | furosemide (LASIX) | Take 40 mg by mouth | | | | | Activ | | 40 mg oral tablet | once daily. | | | | | e | + + +-------+---------+------+------+-------+ | spironolactone 100 | Take 100 mg by mouth | | | | | Activ | | mg oral tablet | once daily. | | | | | e | + + +-------+---------+------+------+-------+ | traMADol 50 mg | Take 50 mg by mouth | | | | | Activ | | oral tablet | as needed for | | | | | e | | | moderate pain. | | | | | | + + +-------+---------+------+------+-------+ Active Problems + + + | Problem | Noted Date | + + + | Liver mass | 09/10/2017 | + + + + + | Overview: X 2, both right lobe, one approximately 4 cm, wash | | out only, second area enhance/washout, approximately 2 cm, but | | older imaging study. | + + + + + | Increased BMI (body mass index) | 09/10/2017 | + + + | Abnormal EKG | 08/06/2017 | + + + | Cirrhosis of liver (HCC) | 08/06/2017 | + + + | At risk for sleep apnea | 08/05/2017 | + + + | Diabetes mellitus type II, controlled (HCC) | 08/05/2017 | + + + | Elevated hemoglobin A1c | 08/05/2017 | + + + | GERD (gastroesophageal reflux disease) | 08/05/2017 | + + + | History of hysterectomy | 08/05/2017 | + + + | Hypertension | 08/05/2017 | + + + Encounters +--------+ + + + + | Date | Type | Specialty | Care Team | Description | +--------+ + + + + | 09/25/ | Hospital | | Jc Acevedo MD | | | 2018 | Encounter | | | | +--------+ + + + + | 09/22/ | MyChart | | | Appointment Reminder | | 2019 | Encounter | | | | +--------+ + + + + | 09/08/ | Procedure | | | | | 2019 | Pass | | | | +--------+ + + + + | 09/08/ | Documentati | | Maritza De La Cruz, RN | HCC Screening (Third | | 2018 | on | | | Extension of HCC | | | | | | MELD Exception) | +--------+ + + + + | 09/04/ | Hospital | | Jc Acevedo MD | | | 2019 | Encounter | | | | +--------+ + + + + | 09/04/ | Hospital | | Jc Acevedo MD | | | 2019 | Encounter | | | | +--------+ + + + + | 09/04/ | Lab | | | Other cirrhosis of | | 2019 | | | | liver (HCC); Liver | | | | | | mass | +--------+ + + + + | 09/02/ | MyChart | | | appointment reminder | | 2018 | Encounter | | | | +--------+ + + + + | 08/13/ | Telephone | | Jc Acevedo MD | Scheduling | | 2018 | | | | | +--------+ + + + + | 08/11/ | Procedure | | | | | 2018 | Pass | | | | +--------+ + + + + | 08/11/ | Chemical Operations Specialist | | Maritza De La Cruz RN | Other cirrhosis of | | 2018 | | | | liver (HCC) (Primary | | | | | | Dx); Liver mass | +--------+ + + + + from Last 3 Months Immunizations + + + + | Name | Dates Previously Given | Next Due | + + + + | HepA-HepB | 09/06/2013, 03/15/2013, 08/18/2012 | | + + + + | Influenza, | 03/27/2017, 03/07/2016, 03/22/2014 | | | injectable, | | | | quadrivalent, | | | | preservative free | | | | (IIV4) | | | + + + + | Influenza, seasonal, | 03/15/2013, 03/06/2012 | | | injectable (IIV3) | | | + + + + | Influenza, seasonal, | 04/12/2015 | | | injectable, | | | | preservative free | | | | (IIV3) | | | + + + + | Influenza, split | 04/06/2010 | | | (incl. purified | | | | surface antigen) | | | + + + + | [id number], | 06/22/2009 | | | injectable | | | + + + + | PCV13 | 01/05/2018 | | + + + + | Pneumococcal 23 | 05/17/2011 | | + + + + | Ppd (tuberculin | 12/09/2017 | | | Purified Protein | | | | Derivative) | | | + + + + | Tdap | 03/06/2012, 03/06/2012, 04/06/2010 | | + + + + | influenza, | 03/08/2011 | | | unspecified | | | | formulation | | | + + + + Family History + + +------+ + | Medical History | Relation | Name | Comments | + + +------+ + | None | Other | | No genetic liver diseases | + + +------+ + + +------+--------+ + | Relation | Name | Status | Comments | + +------+--------+ + | Other | | | | + +------+--------+ + Social History + +-------+ +--------+------+ | [...] on file | | + + + Last Filed Vital Signs + + + + | Vital Sign | Reading | Time Taken | + + + + | Blood Pressure | 132/51 | 06/02/2018 10:04 AM PST | + + + + | Pulse | 109 | 06/02/2018 10:04 AM PST | + + + + | Temperature | 36.6 C (97.9 F) | 01/13/2018 10:41 AM PDT | + + + + | Respiratory Rate | 18 | 06/02/2018 10:04 AM PST | + + + + | Oxygen Saturation | 100% | 06/02/2018 10:04 AM PST | + + + + | Inhaled Oxygen | - | - | | Concentration | | | + + + + | Weight | 104.3 kg (230 lb) | 09/25/2018 4:22 PM PDT | + + + + | Height | 162.6 cm (5' 4") | 01/07/2018 3:20 PM PDT | + + + + | Body Mass Index | 39.48 | 09/25/2018 4:22 PM PDT | + + + + Plan of Treatment +--------+ + + + + | Date | Type | Specialty | Care Team | Description | +--------+ + + + + | 12/01/ | Office | | Jc Acevedo MD | | | 2019 | Visit | | [address] | | | | | | [place], | | | | | | [place] [address] | | | | | | [phone] | | | | | | | | +--------+ + + + + | 12/27/ | Hospital | | Day Contreras MD | | | 1 | Encounter | | [address] | | | | | | [place], | | | | | | [place] [address] | | | | | | [phone] | | | | | | | | +--------+ + + + + + + + + + | Health Maintenance | Due Date | Last Done | Comments | + + + + + | Influenza (Flu) | | 03/27/2017, 03/07/2016, | | | vaccination (#1) | 8 | 04/12/2015, Additional history | | | | | exists | | + + + + + | HEPATOCELLULAR | | 09/25/2018, 09/04/2018, | | | CARCINOMA SCREENING | | 06/26/2018, Additional history | | | | | exists | | + + + + + | Pneumococcal (Adult) | Completed | 01/05/2018, 05/17/2011 | | + + + + + Procedures + +--------+ + + + | [...] section. | + +--------+ + + + from Last 3 Months Results MRI ABDOMEN WWO CONTRAST (09/25/2018 4:47 [...] 2 x 1.7 cm in segment 7 (/80), | | | likely represents a treated [...] report as now presented. Final signature: Eve Sims | | MD Jovanny 09/27/2018 5:56 PM Preliminary: Levi Tang | Dictation initiated: Eve Petty MD 09/27/2018 [...] | | with MRI is suggested. LI-RADS [id number] NC: Not categorized due to image | [...] | | + +---------+ + + CT ABDOMEN WWO IV CONTRAST (09/04/2018 1:37 [...] Note | + + | Service Account, [employer] In Interface - 09/04/2018 3:23 PM [...] with MRI | | is recommended. LI-RADS [id number] NC: Not categorized due to image degradation [...] Castillo MD 09/04/2018 3:54 PM Preliminary: Chayito Sims | | Davion Blandon MD Dictation initiated: [...] | | | + +---------+ + + CREATININE, POC (09/04/2018 1:29 PM) + +-------+ + + | Component | Value | Ref Range | Performed At | + +-------+ + + | CREATININE, POC | 0.8 | 0.6 - 1.1 mg/dL | [facility] | | | | | KAMERON [...] + + + | [facility] | [address] | [place], [place] | | | K[place]ERON PILLAI OF [facility] | [address] | [address] | | | TESTS | | | | + + + + + CBC (HEMOGRAM) ONLY (09/04/2018 12:13 PM) + + + + + | Component | Value | Ref Range | Performed At | + + + + + | WHITE CELL COUNT | 6.64 | 3.50 - 10.80 K/cu mm | [facility] | | | | | SERVICES, CORE | + + + + + | RED CELL COUNT | 4.70 | 4.00 - 5.20 M/cu mm | [facility] | | | [...] (H) | 35.1 - 46.3 fL | [facility] | | | | | SERVICES, CORE | + + + + + | PLATELET COUNT | 118 (L) | 150 - 400 K/cu mm | [facility] | | | | | SERVICES, [...] | 0.00 - 0.02 K/cu mm | [facility] | | | | | SERVICES, [place] | + + + + + + + | Specimen | + + | Blood - Blood | + + + + + + + | Performing | Address | City/State/Zipcode | Phone Number | | Organization | | | | + + + + + | [facility] | [address] | [place] [address] | | | [place], [place] | [address] | | | + + + + + INR (09/04/2018 12:13 PM) + + + + + | Component | Value | Ref Range | Performed At | + + + + + | INR | 1.31 (H) | 0.90 - 1.20 INR | [facility] | | | | | SERVICES, [...] mech. valves (2.5 - 3.5) INR | [facility] CORE | + + + + + + + + | Performing | Address | City/State/Zipcode | Phone Number | | Organization | | | | + + + + + | [facility] | [address] | [place] [address] | | | SERVICES, [facility] | [address] | | | + [...] >60 mL/min | [facility] | | [place] | | | SERVICES, CORE | + +---------+ + + | EGFR NON | >60 | >60 mL/min | [facility] | | -[place] | | | SERVICES, CORE | + [...] (L) | 3.5 - 4.7 g/dL | [facility] | | (LAB) | | | [...] POTASSIUM CMNT | No Hemo | | [facility] | | | | | SERVICES, CORE | + +---------+ + + | BILI T CMNT | No Hemo | | [facility] | | | | | SERVICES, CORE | + +---------+ + + | AST CMNT | No Hemo | | [facility] | | | | | SERVICES, CORE | + +---------+ + + + + | Specimen | + + | Blood - Blood | + + + + + | Narrative | Performed At | + + + | GFR is estimated using the MDRD equation recommended by the | [facility] | | National Kidney Disease Education Program. [...] | + + + + + | [facility] | [address] | [place] [address] | | | SERVICES, CORE | [address] | | | + + + + + ALPHA-FETOPROTEIN TUMOR MARKER, SERUM (09/04/2018 12:13 PM) + + + + + | Component | Value | Ref Range | Performed At | + + + + + | AFP TUMOR MARKER | 15.9 (H) | <=9.0 ng/mL | [facility] | | SERUM, [facility] | | | SERVICES, CORE | + + + + + + + | Specimen | + + | Blood - Blood | + + + + + + + | Performing | Address | City/State/Zipcode | Phone Number | | Organization | | | | + + + + + | [facility] | [address] | [place] [address] | | | SERVICES, CORE | [address] | | | + + + + + from Last 3 Months Insurance + +--------+ +--------+ + + | Payer | Benefi | Subscriber | Type | Phone | Address | | | t Plan | ID | | | | | | / | | | | | | | Group | | | | | + +--------+ +--------+ + + | [place] | O[employer] | xxxxxxxx | Medica | [phone] [address] [address] | | | PLUS | | id | [phone] | [place] [address] | | | OPEN | | | | | | | CARD | | | | | + +--------+ +--------+ + + + +--------+ +--------+ + + | Guarantor Name | Accoun | Relation to | Date | Phone | Billing Address | | | t Type | Patient | of | | | | | | | | | | + +--------+ +--------+ + + | VERONIKA MAYES | Person | Self [birth year] | Home: | [address] | | al/Fam | | [phone] | [phone] [place] [address] | | | arias | | | [phone] | | + +--------+ +--------+ + +
--- OUTSIDE RECORDS SUMMARY | ~2018-10-05 | XMS | Encounter Summary ---
Demographics + + + | Address | [address] | | | [place] [address] | + + + | Home Phone | | + + + | Preferred Language | Unknown | + + + | Marital Status | Single | + + + | Druze Affiliation | NRP | + + + | Race | Unknown | + + + | Ethnic Group | Not or | + + + Author + + + | Author | [facility] | + + + | Organization | [facility] | + + + | Address [...] Team Providers + +------+ + | Care Engraved Roller Inspector Name | Role | Phone | + +------+ + | Juan Manuel Yan MD | PCP | | + +------+ + Encounter Details +--------+ + + + + | Date | Type | Department | Care Team | Description | +--------+ + + + + | 09/02/ | MyChart | Diagnostic Imaging | | appointment reminder | | 2019 | Encounter | Services [address] | | | | | | [facility] | | | | | | Road [place], [place] | | | | | | [address] | | | +--------+ + + + [...] [place] | | | | | | [address], | | | | | | [place] [address] | | | | | | [phone] | | | | | | | | +--------+ + + + + | 12/27/ | Hospital | Adult Acute Care | Day Contreras MD | | | 2020 | Encounter | | [address] | | | | | | [place], | | | | | | [place] [address] | | | | | | [phone] | | | | | | | | +--------+ + + + + as of this encounter Visit Diagnoses Not on filein this encounter"
--- OUTSIDE RECORDS SUMMARY | ~2018-10-05 | XMS | Encounter Summary ---
Demographics + + + | Address | [address] | | | [place] [address] | + + + | Home Phone | | + + + | Preferred Language | Unknown | + + + | Marital Status | Single | + + + | Scientology Affiliation | NRP | + + + [...] Team Providers + +------+ + | Care Appeals Board Referee Name | Role | Phone | + +------+ + | Juan Manuel Yan MD | PCP | | + +------+ + Encounter Details +--------+ + + + + | Date | Type | Department | Care Team | Description | +--------+ + + + + | 09/22/ | MyChart | MyChart [address] | | Appointment Reminder | | 2019 | Encounter | [address] | | | | | | Road [place], [place] | | | | | | [address] | | | +--------+ + + + [...] [place] | | | | | | [address], | | | | | | [place] [address] | | | | | | [phone] | | | | | | | | +--------+ + + + + | 12/27/ | Hospital | Adult Acute Care | Day Contreras MD | | | 2020 | Encounter | | [address] | | | | | | [place], | | | | | | [place] [address] | | | | | | [phone] | | | | | | | | +--------+ + + + + as of this encounter Visit Diagnoses Not on filein this encounter"
--- OUTSIDE RECORDS SUMMARY | ~2018-10-05 | XMS | Encounter Summary ---
Demographics + + + | Address | [address] | | | [place] [address] | + + + | Home Phone | | + + + | Preferred Language | Unknown | + + + | Marital Status | Single | + + + | Shinto Affiliation | NRP | + + + | Race | Unknown | + + + | Ethnic Group | Not or | + + + Author + + + | Author | [facility] | + + + | Organization | [facility] | + + + | Address [...] Team Providers + +------+ + | Care Legislative Director Name | Role | Phone | + [...] (HCC); Liver | | | | at [facility] 3rd Floor | | mass | | | | [address] | | | | | | [address] | | | | | | [place], [place] | | | | | | [address] | | | | | | [phone] | | | +--------+------+ + + + [...] | | | | | [place], | | | | | | [place] [address] | | | | | | [phone] | | | | | | | | +--------+ + + + + | 12/27/ | Hospital | Adult Acute Care | Day Contreras MD | | | 2020 | Encounter | | [address] | | | | | | [place], | | | | | | [place] [address] | | | | | | [phone] | | | | | | | [...] | 3.50 - 10.80 K/cu mm | [facility] | | | | | SERVICES, CORE | + + + + + | RED CELL COUNT | 4.70 | 4.00 - 5.20 M/cu mm | [facility] | | | | | SERVICES, [...] | + + + + + | [facility] | [address] | [place] [address] | | | SERVICES, CORE | [address] [...] >60 mL/min | [facility] | | [place] | | | SERVICES, CORE | + +---------+ + + | EGFR NON | >60 | >60 mL/min | [facility] | | -[place] | | | SERVICES, CORE | + [...] | + + + + + | [facility] | [address] | [place] [address] | | | KESHAWN MCKINNON | [address] | | | + + + + + INR (09/04/2018 12:13 PM) + + + + + | Component | Value | Ref Range | Performed At | + + + + + | INR | 1.31 (H) | 0.90 - 1.20 INR | [facility] | | | | | [...] | + + + + + | [facility] | [address] | [place] [address] | | | K[place]WN MCKINNON | [address] | | | + + + + + ALPHA-FETOPROTEIN TUMOR MARKER, SERUM (09/04/2018 12:13 PM) + + + + + | Component | Value | Ref Range | Performed At | + + + + + | AFP TUMOR MARKER | 15.9 (H) | <=9.0 ng/mL | [facility] | | SERUM, [facility] | | | SERVICES, CORE | + + + + + + + | Specimen | + + | Blood - Blood | + + + + + + + | Performing | Address | City/State/Zipcode | Phone Number | | Organization | | | | + + + + + | [email or web address] | [address] | [place] [address] | | | SERVICES, [place] | [address] | | | + + + + + in this encounter Visit Diagnoses + + | Diagnosis | + + | Other cirrhosis of liver (HCC) | + + | Liver mass | + + | Unspecified disorder of liver | + +"
--- OUTSIDE RECORDS SUMMARY | ~2018-10-05 | XMS | Encounter Summary ---
Demographics + + + | Address | [address] | | | [place] [address] | + + + | Home Phone | | + + + | Preferred Language | Unknown | + + + | Marital Status | Single | + + + | Evangelical Affiliation | NRP | + + + | Race | Unknown | + + + | Ethnic Group | Not or | + + + Author + + + | Author | [facility] | + + + | Organization | [facility] | + + + | Address [...] Team Providers + +------+ + | Care Axle Bearing Polisher Name | Role | Phone | + [...] | | | | | Procedures | [place], [place] | [address] | | | | | MRI | [address] | [place] | | | | | ABDOMEN WWO | Phone: | Research | | | | | CONTRAST | [phone] | [place] | | | | | | Fax: | [place], [place] | | | | | | [phone] | [address] | | | | | | | Phone: | | | | | | | [phone] | | | | | | | Fax: | | | | | | | [phone] | +--------+--------+ + + + + Reason [...] MELD Exception) | | | | Road [place], [place] | [place], [place] | | | | | [address] | [address] | | | | | [phone] | | | +--------+ + + + [...] | | | | | [place], | | | | | | [place] [address] | | | | | | [phone] | | | | | | | | +--------+ + + + + | 12/27/ | Hospital | Adult Acute Care | Day Contreras MD | | | 2020 | Encounter | | [address] | | | | | | [place], | | | | | | [place] [address] | | | | | | [phone] | | | | | | | [...] | | with MRI is suggested. LI-RADS [id number] NC: Not categorized due to image | [...]
--- OUTSIDE RECORDS SUMMARY | ~2018-10-05 | XMS | Clinical Summary ---
Demographics + + + | Address | [address] | | | [place] [address] | + + + | Home Phone [...] Author + + + | Author | [facility] | + + + | Organization | [facility] | + + + | Address [...] Team Providers + +------+ + | Care Oracle Erp Architect Name | Role | Phone | + +------+ + | Juan Manuel Yan MD | PP | | + +------+ + Source Comments BRADY is fully live on both EpicCare Ambulatory and EpicCare InPatient.[facility] Allergies + + + + [...] + + + + | 08/11/ | Health Unit Clerk | | Maritza De La Cruz RN [...] | | + + + + | [id number], | 06/22/2009 | | | injectable | [...] | | | | | [place], | | | | | | [place] [address] | | | | | | [phone] | | | | | | | | +--------+ + + + + | 12/27/ | Hospital | | Day Contreras MD | | | 1 | Encounter | | [address] | | | | | | [place], | | | | | | [place] [address] | | | | | | [phone] | | | | | | | [...] | | with MRI is suggested. LI-RADS [id number] NC: Not categorized due to image | [...] Eve Petty MD | |Dictation initiated: Eve Ptety MD 09/27/2018 5:23 PM | + + [...] Note | + + | Service Account, [employer] Res In Interface - 09/04/2018 3:23 PM [...] with MRI | | is recommended. LI-RADS [id number] NC: Not categorized due to image degradation [...] + + + | [facility] | [address] | [place], [place] | | | [place] PILL[place] OF [facility] | [address] | [address] | | | TESTS | | | [...] (H) | 35.1 - 46.3 fL | [facility] | | | | | SERVICES, CORE | + + + + + | PLATELET COUNT | 118 (L) | 150 - 400 K/cu mm | [facility] | | | | | SERVICES, [...] | 0.00 - 0.02 K/cu mm | [facility] | | | | | SERVICES, [place] | + + + + + + + | Specimen | + + | Blood - Blood | + + + + + + + | Performing | Address | City/State/Zipcode | Phone Number | | Organization | | | | + + + + + | [facility] | [address] | [place] [address] | | | PRATIBHA, KESHAWN | [address] | | | + + + + + INR (09/04/2018 12:13 PM) + + + + + | Component | Value | Ref Range | Performed At | + + + + + | INR | 1.31 (H) | 0.90 - 1.20 INR | [facility] | | | | [...] | + + + + + | [facility] | [address] | [place] [address] | | | SERVICES, [facility] | [address] | | | + [...] >60 mL/min | [facility] | | [place] | | | SERVICES, CORE | + +---------+ + + | EGFR NON | >60 | >60 mL/min | [facility] | | -[place] | | | SERVICES, CORE | + [...] (L) | 3.5 - 4.7 g/dL | [facility] | | (LAB) | | | [...] POTASSIUM CMNT | No Hemo | | [facility] | | | | | SERVICES, CORE | + +---------+ + + | BILI T CMNT | No Hemo | | [facility] | | | | | SERVICES, CORE | + +---------+ + + | AST CMNT | No Hemo | | [facility] | | | | | SERVICES, CORE | + +---------+ + + + + | Specimen | + + | Blood - Blood | + + + + + | Narrative | Performed At | + + + | GFR is estimated using the MDRD equation recommended by the | [facility] | | National Kidney Disease Education Program. [...] [facility] | [address] | [place] [address] | | | SERVICES, CORE | [address] | | | + + + + + ALPHA-FETOPROTEIN TUMOR MARKER, SERUM (09/04/2018 12:13 PM) + + + + + | Component | Value | Ref Range | Performed At | + + + + + | AFP TUMOR MARKER | 15.9 (H) | <=9.0 ng/mL | [facility] | | SERUM, [facility] | | | SERVICES, CORE | + + + + + + + | Specimen | + + | Blood - Blood | + + + + + + + | Performing | Address | City/State/Zipcode | Phone Number | | Organization | | | | + + + + + | [facility] | [address] | [place] [address] | | | SERVICES, CORE | [address] [...] | Medica | [phone] [address] [phone] | | | PLUS | | id | [phone] | [place] [address] | | | OPEN | | | [...] | [phone] | [phone] | [place] [address] | | | [place] | | | [phone] | | + +--------+ +--------+ + +
--- OUTSIDE RECORDS SUMMARY | ~2018-10-05 | XMS | Clinical Summary ---
Demographics + + + | Address | [address] | | | [place] [address] | + + + | Home Phone | | + + + | Preferred Language | Unknown | + + + | Marital Status | | + + + | Jainism Affiliation | Unknown | + + + | Race | Unknown | + + + | Ethnic Group | Unknown | + + + Author + + + | Author | [facility] | | | and [place] | + + + | Organization | [facility] | | | and [place] | [...] Team Providers + +------+ + | Care [employer] Paper Coating Machine Setter Name | Role | Phone | + [...] +---------+--------+ | [place] | MEDICA | [id number] | 06/09/ | [phone] | | Medica | | | ID [place] | | 2017-P | 2 | | id | | | PLUS | | resent | | | | + +--------+ +--------+ +---------+--------+ | [place]ID [place] | MEDICA | [id number] | 06/30/19 | [phone] | | Medica | | | ID [...] | | al/Fam | | 1955 | [phone] | [place] [address] | | | arias | | | 2 (Home) | | + +--------+ +--------+ + + Advance Directives Patient has advance care planning documents on file. For more information, please contact:[facility] [place] [address]
[~2018-10-05 14:39] MED LIST changes: +ASPIRIN EC81 MG PO; +GLUCOTROL XL2.5 MG PO; +LIPITOR10 MG PO; +ONDANSETRON ODT8 MG PO; +PROTONIX40 MG PO
[2018-10-05] MEDS ORDERED: SPIRONOLACTONE100 MG NG (15:01)
[2018-10-05] MEDS ORDERED: FUROSEMIDE40 MG PO (15:01)
[2018-10-05] MEDS ORDERED: ULTRAM50 MG PO (15:01)
--- NOTE | 2018-10-06 14:00 | EKG ---
[facility] [address] [facility] [place] [address] Signed Sinus tachycardia Incomplete right bundle branch block Minimal voltage criteria for LVH, may be normal variant Possible Lateral infarct , age undetermined Abnormal ECG No previous ECGs available Confirmed by SANJAY HAYES MD ([id number]) on 10/06/2018 2:00:01 PM Electronically Signed By: SANJAY HAYES MD 10/06/18 1400 PATIENT NAME: JAROCHO MAYES ANN Electrocardiogram DATE OF : 57 PHYSICIAN: SANJAY HAYES MD REPORT #: [id number] REPORT IS CONFIDENTIAL AND NOT TO BE RELEASED WITHOUT AUTHORIZATION
== END 2018-10-05 17:40 | disposition home or self-care (01) ==
LOC: ED 14:39
DX: K76.9 Liver disease, unspecified (principal); R18.8 Other ascites; E11.9 Type 2 diabetes mellitus without complications; I10 Essential (primary) hypertension; Z87.891 Personal history of nicotine dependence; Z88.8 Allergy status to other drugs, medicaments and biological substances; Z79.899 Other long term (current) drug therapy; Z79.82 Long term (current) use of aspirin
CPT/HCPCS: 71045; 76705; 80053; 84484; 85025; 93005; 93010; 99285-25

== ENCOUNTER 2020-09-26 06:13 | Day surgery (SDC) | payer OTHER ==
[~2020-09-26 06:13] MED LIST changes: +FUROSEMIDE40 MG PO; +IMURAN50 MG PO; +NATURAL CALCIU500 MG PO; +OMEPRAZOLE20 MG PO; +PROGRAF1 MG PO; +SPIRONOLACTONE100 MG NG; +ULTRAM50 MG PO
--- NOTE | 2020-09-26 07:42 | NUR ---
09/26/20 0742 Kelsy Bermudez 5927-PATIENT ARRIVED TO PACU ON 2L NC DROWSY AROUSES TO VERBAL STIMULI DENIES PAIN OR NAUSEA. RR EVEN. ABDOMEN SOFT. IVF INFUSING. PATIENT DOZES BACK TO SLEEP.
--- NOTE | 2020-09-26 08:57 | OR ---
[facility] [address] [place], [place] [address] Signed DATE OF OPERATION: 09/26/2020 SURGEON: Keenan Mancuso MD PREOPERATIVE DIAGNOSES: 1. Gastroesophageal reflux disease. 2. EGD in 2018. 3. Liver transplant 2019. POSTOPERATIVE DIAGNOSIS: Unremarkable. PROCEDURES: EGD with CLOtest and biopsies of the antrum. ESTIMATED BLOOD LOSS: None. FINDINGS: Possible tiny hiatal hernia. No congestion of the stomach or any varices following liver transplant. INDICATIONS: Jarocho is a 64-year-old female who had upper endoscopy in [address] Huitron. She has done well with her omeprazole until recently. Her PCP doubled the dose to 40 mg. Unfortunately, we do not have the previous records. Her coil repair technician wanted to repeat the upper endoscopy in one year. In the meantime, she underwent liver transplant in 2019 at [facility]. She had a fatty liver with cirrhosis and hepatocellular carcinoma. She has done exceptionally well following liver transplant. She is even off her prednisone. In the office, I gave her a pamphlet on upper endoscopy and we reviewed that together along with the risks including, but not limited to gas bloating, crampy abdominal pain, bleeding, perforation requiring surgery, and missed diagnosis. We also discussed the need for IV conscious sedation. She had expressed understanding and wished to proceed. DESCRIPTION OF PROCEDURE: Jarocho was taken into our endoscopy suite and placed in the supine semi-recumbent position. The posterior oropharynx was anesthetized with lidocaine spray. A bite block was utilized for the case. She was given a total of 4 mg of Versed and 100 mcg of fentanyl to cover the case. The adult gastroscope was introduced and advanced quite Electronically Signed By: KEENAN MANCUSO MD 09/26/20 0857 PATIENT NAME: JAROCHO MAYES OPERATIVE REPORT DATE OF : 57 REPORT #: [id number] PHYSICIAN: KEENAN MANCUSO MD PCP: GELA HUANG CARDING MACHINE OPERATOR-Boaz REPORT IS CONFIDENTIAL AND NOT TO BE RELEASED WITHOUT AUTHORIZATION [facility] [address] [place], [place] [address] Signed readily out into 3rd portion of the duodenum without difficulty. The duodenum and pyloric channel were unremarkable. We had taken pictures throughout for photodocumentation. The entire stomach was unremarkable. There was no congestion, no inflammatory changes and no ulcerations. We went and took a biopsy of the antrum for pathologic review as well as CLOtest. Upon retroflexion of scope, we could see the rest of the stomach was unremarkable. She may have just a very tiny hiatal hernia. The scope was withdrawn up through the area of the GE junction, which was compliant without stricture. There were no gastric or esophageal varices. The Z-line remains intact. There was no Chow's mucosa. There was no distal esophagitis. The middle and upper esophagus were unremarkable. The adult gastroscope was removed along with the gas. In the posterior oropharynx just to the side of the retinoid, was a tiny smooth benign-appearing nodule. It is something our ENT physician should probably check in the office given the fact that Jarocho is immunocompromised. Jarocho tolerated the procedure quite well. RECOMMENDATIONS: I will see Jarocho back in my office in 7 to 14 days to review her results. She should consider seeing an Ear, Nose, and Throat surgeon to look at this tiny nodule just to the side of her arytenoid given her immunocompromised state. Keenan Mancuso MD ALB/MODL /[id number] cc: Keenan Mancuso MD [facility] Copies: KEENAN MANCUSO MD ~ Electronically Signed By: KEENAN MANCUSO MD 09/26/20 0857 PATIENT NAME: JAROCHO MAYES OPERATIVE REPORT DATE OF : 57 REPORT #: [id number] PHYSICIAN: KEENAN MANCUSO MD PCP: GELA HUANG REPORT IS CONFIDENTIAL AND NOT TO BE RELEASED WITHOUT AUTHORIZATION
--- NOTE | 2020-09-28 11:57 | PATH ---
[facility] [address] [place], [place] [address] Signed SPECIMEN(S): A ANTRUM/PYLORUS SPECIMEN SOURCE: A. ANTRUM/PYLORUS CLINICAL HISTORY: Esophagogastroduodenoscopy. GERD s/p liver transplant. Postop: Unremarkable. MICROSCOPIC DESCRIPTION: Histologic sections of all submitted blocks are examined by light microscopy. These findings, together with the gross examination, support the pathologic diagnosis. FINAL PATHOLOGIC DIAGNOSIS: Stomach, antrum/pylorus, biopsy: - Antral mucosa with mild chronic, inactive gastritis. - Negative for Helicobacter organisms on HE stain. - Negative for dysplasia or malignancy. NAL:cml:C2NR GROSS DESCRIPTION: The specimen, labeled "MA," and designated on the requisition "antrum/pylorus," is received in formalin and consists of one boudreaux soft tissue fragment that measures 0.3 cm in greatest dimension. The specimen is entirely submitted in cassette (A1). AT (under the direct supervision of a pathologist) The Gross Description was prepared using a voice recognition system. The report was reviewed for accuracy; however, sound-alike word errors, addition and/or deletions may occur. If there is any question about this report, please contact Client Services. PERFORMING LABORATORY: The technical component was performed by [facility], [address] [place] [id number] (Floor Refinisher: Taylor Lopez MD; CLIA# [id number]). [facility], [address] [address] (CLIA# [id number]). Diagnostician: Amber Dejesus MD Pathologist Electronically Signed 09/28/2020 PATIENT NAME: JAROCHO MAYES PATHOLOGY DATE OF : 57 REPORT #: [id number] PHYSICIAN: IVANA PATHOLOGY PCP: GELA HUANG REPORT IS CONFIDENTIAL AND NOT TO BE RELEASED WITHOUT AUTHORIZATION [address] [address] Signed Copies: ~ PATIENT NAME: JAROCHO MAYES PATHOLOGY DATE OF : 57 REPORT #: [id number] PHYSICIAN: IVANA PATHOLOGY PCP: GELA HUANG REPORT IS CONFIDENTIAL AND NOT TO BE RELEASED WITHOUT AUTHORIZATION
== END 2020-09-26 08:10 | disposition home or self-care (01) ==
LOC: OPS 06:13 → DS 06:13 → OPS 06:45
PROVIDERS: ATTEND Colon & Rectal Surgery
PROC: 0DB68ZX Excision of Stomach, Via Natural or Artificial Opening Endoscopic, Diagnostic (ICD-10-PCS; principal; 2020-09-26 06:45)
DX: K21.9 Gastro-esophageal reflux disease without esophagitis (principal); K29.50 Unspecified chronic gastritis without bleeding; I10 Essential (primary) hypertension; E11.9 Type 2 diabetes mellitus without complications; Z88.8 Allergy status to other drugs, medicaments and biological substances; Z94.4 Liver transplant status
CPT/HCPCS: 86677; G0500; J2250; J3010; J7121

== ENCOUNTER 2021-08-28 11:31 | Emergency (ER) | payer OTHER ==
[~2021-08-28] VITALS: Ht 162.6 cm; Wt 104.0 kg
[2021-08-28] MEDS ORDERED: PROGRAF1 MG PO (12:27)
[2021-08-28] MEDS ORDERED: IMURAN50 MG PO (12:28)
[2021-08-28] MEDS ORDERED: MULTI VITAMIN1 EACH PO (12:29)
[2021-08-28] MEDS ORDERED: COZAAR25 MG PO (12:30)
[2021-08-28] MEDS ORDERED: GLIPIZIDE10 MG PO (12:30)
[2021-08-28] MEDS ORDERED: LIPITOR40 MG PO (12:31)
[2021-08-28] MEDS ORDERED: IMODIUM A-D2 M2 PO (14:06)
[2021-08-28] MEDS ORDERED: ONDANSETRON ODT4 MG SL (14:06)
[2021-08-28] MEDS ORDERED: DICYCLOMINE HCL20 MG PO (14:06)
== END 2021-08-28 14:27 | disposition home or self-care (01) ==
LOC: ED 11:31
DX: R19.7 Diarrhea, unspecified (principal); E11.9 Type 2 diabetes mellitus without complications; I10 Essential (primary) hypertension; K74.60 Unspecified cirrhosis of liver; Z88.8 Allergy status to other drugs, medicaments and biological substances; Z79.82 Long term (current) use of aspirin; Z79.84 Long term (current) use of oral hypoglycemic drugs; Z79.899 Other long term (current) drug therapy; Z87.891 Personal history of nicotine dependence
CPT/HCPCS: 36415; 74177; 80053; 81001; 85025; 96375; 99284-25; C9803; J1885; J2405; J7030; U0003